=== PATIENT | male | born 1940 | race Caucasian/White ===

== ENCOUNTER 2018-11-21 18:50 | Outpatient (CLI) | payer MEDICARE, BC | END 2018-11-21 18:51 | disposition critical access hospital (66) | LOC: MERGE 18:50 → EMS 18:50 | PROVIDERS: ATTEND Surgery | DX: R55 Syncope and collapse (principal); R11.0 Nausea | CPT/HCPCS: A0425; A0427 ==

== ENCOUNTER 2018-11-21 18:56 | Emergency (ER) | payer MEDICARE, BC ==
[2018-11-21 19:30] LABS: BASOPHILS % (AUTO) 0.1 %; EOSINOPHILS # (AUTO) 0.1 10^3/uL (0.0-0.7); EOSINOPHILS % (AUTO) 0.5 %; HGB - HEMOGLOBIN 13.9 g/dL (14.0-18.0); LYMPHOCYTES # (AUTO) 1.1 10^3/uL (1.5-3.5); LYMPHOCYTES % (AUTO) 10.6 %; MEAN CORPUSCULAR HEMOGLOBIN 31.1 pg (27.0-31.0); MEAN CORPUSCULAR HGB CONC 34.1 g/dL (32.0-36.0); MEAN PLATELET VOLUME 6.8 fL (7.4-11.4); MONOCYTES # (AUTO) 1.1 10^3/uL (0.0-1.0); MONOCYTES % (AUTO) 9.9 %; NEUTROPHILS # (AUTO) 8.5 10^3/uL (1.5-6.6); NEUTROPHILS % (AUTO) 78.9 %; PLT - PLATELET COUNT 187 10^3/uL (130-450); RED BLOOD COUNT 4.48 10^6/uL (4.70-6.10); RED CELL DISTRIBUTION WIDTH 14.1 % (12.0-15.0); WHITE BLOOD COUNT 10.8 x10^3/uL (4.8-10.8)
[2018-11-21 19:45] LABS: ALBUMIN 3.1 g/dL (3.2-5.5); ALBUMIN/GLOBULIN RATIO 1.1 (1.0-2.2); BILIRUBIN,TOTAL 0.6 mg/dL (0.2-1.0); CALCIUM 8.2 mg/dL (8.5-10.3); CREATININE 0.8 mg/dL (0.6-1.2); TOTAL PROTEIN 5.9 g/dL (6.7-8.2)
[2018-11-21] MEDS ORDERED: SODIUM CHLORIDE 0.9% 1,000 ML IV ONE ×2 (20:21→21:48)
--- NOTE | 2018-11-21 20:26 | ED Physician Documentation ---
PD HPI SYNCOPE - Stated complaint Stated Complaint: SYNCOPAL - Chief complaint Chief Complaint: Neuro - History obtained from History obtained from: Patient, Family - History of Present Illness Witnessed: Witnessed Timing - onset: Today Duration: Minutes Preceding symptoms: Diaphoresis, Nausea / vomiting, Light headed Associated symptoms: Nausea / vomiting Contributing factors: Just stood up, Other (recovering from pneumonia) Injury occurred: None Similar symptoms before: Has not had sx before Recently seen: Emergency Dept - Additional information Additional information: 78-year-old male who is had a cough for the past week has been diagnosed with pneumonia 2 days ago when he developed shaking chills [facility]. He has been placed on Levaquin he was given 2 L of fluid. He reports that they spent the night in a hotel after getting out of the emergency room at midnight and th en yesterday he spent most of the day in bed today he was resting and when he was sitting on the couch he had half a beer he felt dizzy lightheaded nauseous and diaphoretic. He went to stand up from the couch and had a syncopal episode his found him laying across the couch and he was initially unresponsive. Review of Systems Constitutional: reports: Fever, Chills, Fatigue, Sweats Eyes: denies: Decreased vision Ears: denies: Ear pain Nose: denies: Rhinorrhea / runny nose, Congestion Throat: denies: Sore throat Cardiac: denies: Chest pain / pressure, Palpitations Respiratory: reports: Cough. denies: Dyspnea GI: reports: Nausea, Vomiting. denies: Abdominal Pain : denies: Dysuria, Frequency Skin: denies: Rash Musculoskeletal: denies: Neck pain, Back pain, Extremity pain Neurologic: denies: Generalized weakness, Focal weakness, Numbness PD PAST MEDICAL HISTORY - Past Medical History Past Medical History: Yes Cardiovascular: Hypertension Other Past Medical History: prostate CA - Present Medications Home Medications: Ambulatory Orders Medication Instructions Recorded Confirmed RX: Atenolol 0 mg PO DAILY 11/21/18 11/21/18 RX: Lisinopril 0 mg PO DAILY 11/21/18 11/21/18 amLODIPine [Norvasc] 5 mg PO DAILY 11/21/18 11/21/18 levoFLOXacin [Levaquin] 0 mg PO QD 11/21/18 11/21/18 - Allergies Allergies/Adverse Reactions: Allergies Allergy/AdvReac Type Severity Reaction Status Date / Time No Known Drug Allergies Allergy Verified 11/21/18 19:09 - Social History Does the pt smoke?: No Smoking Status: Never smoker PD ED PE NORMAL - Vitals Vital signs reviewed: Yes (hypertenisve ) - General General: Alert and oriented X 3, No acute distress, Well developed/nourished, Other (Yesterday looking 78-year-old male with a weather beaten face is in no distress) - HEENT HEENT: Atraumatic, PERRL, EOMI - Neck Neck: Supple, no meningeal sign, No bony TTP - Cardiac Cardiac: RRR, No murmur - Respiratory Respiratory: No respiratory distress, Other (Rhonchi in the left base) - Abdomen Abdomen: Soft, Non tender - Back Back: No CVA TTP, No spinal TTP - Derm Derm: Normal color, Warm and dry, No rash - Extremities Extremities: No deformity, No edema - Neuro Neuro: Alert and oriented X 3, 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, No motor deficit, No sensory deficit, Normal speech Eye Opening: Spontaneous Motor: Obeys Commands Verbal: Oriented GCS Score: 15 - Psych Psych: Normal mood, Normal affect Results - Vitals Vitals: Vital Signs - 24 hr 11/21/18 11/21/18 11/21/18 19:02 21:32 21:36 Temperature 36.5 C Heart Rate 69 69 68 Respiratory 19 13 24 Rate Blood Pressure 184/63 H 169/52 H 192/75 H O2 Saturation 96 95 95 11/21/18 22:26 Temperature 37.2 C Heart Rate 68 Respiratory 24 Rate Blood Pressure 183/65 H O2 Saturation 98 Oxygen O2 Source Room air - EKG (time done) 1909 Rate: Rate (enter#) (70) Rhythm: NSR, LAE Intervals: RBBB Compare to prior EKG: Old EKG unavailable Computer interpretation: Agree with computer - Labs Labs: Laboratory Tests 11/21/18 11/21/18 11/21/18 19:25 19:25 20:35 WBC 10.8 RBC 4.48 L Hgb 13.9 L Hct 40.7 L MCV 91.0 MCH 31.1 H MCHC 34.1 RDW 14.1 Plt Count 187 MPV 6.8 L Neut # (Auto) 8.5 H Lymph # (Auto) 1.1 L [place] # (Auto) 1.1 H Eos # (Auto) 0.1 Baso # (Auto) 0.0 Absolute Nucleated RBC 0.01 Nucleated RBC % 0.1 Sodium 134 L Potassium 3.8 Chloride 101 Carbon Dioxide 24 Anion Gap 9.0 BUN 16 Creatinine 0.8 Estimated GFR (MDRD) 93 Glucose 129 H Lactic Acid Calcium 8.2 L Total Bilirubin 0.6 AST 35 ALT 31 Alkaline Phosphatase 51 Troponin I < 0.04 Total Protein 5.9 L Albumin 3.1 L Globulin 2.8 Albumin/Globulin Ratio 1.1 Lipase 22 Urine Color Urine Clarity Urine pH Ur Specific [place] Urine Protein Urine Glucose (UA) Urine Ketones Urine Occult Blood Urine Nitrite Urine Bilirubin Urine Urobilinogen Ur Leukocyte Esterase Ur Microscopic Review Urine Culture Comments 11/21/18 11/21/18 20:35 21:55 WBC RBC Hgb Hct MCV MCH MCHC RDW Plt Count MPV Neut # (Auto) Lymph # (Auto) [place] # (Auto) Eos # (Auto) Baso # (Auto) Absolute Nucleated RBC Nucleated RBC % Sodium Potassium Chloride Carbon Dioxide Anion Gap BUN Creatinine Estimated GFR (MDRD) Glucose Lactic Acid 1.1 Calcium Total Bilirubin AST ALT Alkaline Phosphatase Troponin I Total Protein Albumin Globulin Albumin/Globulin Ratio Lipase Urine Color YELLOW Urine Clarity CLEAR Urine pH 6.0 Ur Specific [place] 1.015 Urine Protein NEGATIVE Urine Glucose (UA) NEGATIVE Urine Ketones TRACE Urine Occult Blood NEGATIVE Urine Nitrite NEGATIVE Urine Bilirubin NEGATIVE Urine Urobilinogen 0.2 (NORMAL) Ur Leukocyte Esterase NEGATIVE Ur Microscopic Review NOT INDICATED Urine Culture Comments NOT INDICATED - Rads (name of study) chest 1 view Radiology: Prelim report reviewed (Impression: 1. Lungs are well expanded. Normal heart size. There is thoracic aortic calcification. 2 There is increased opacity within the left lung base. This is suspicious for infiltrate. 3 Small pleural effusions may be present. 4 There is no pneumothorax.), EMP read indepedently, See rad report Procedures - IVC sono (time) 2019 Bedside IVC sono: IVC measures (cm) (1.22), IVC collapsed c insp (cm) (complete), Dehydration (est 1 liter deficit) PD MEDICAL DECISION MAKING - ED course Complexity details: reviewed old records, reviewed results, re-evaluated patient, considered differential, d/w patient, d/w family ED course: 78-year-old male with pneumonia has had a syncopal episode this evening after drinking a beer and standing up. He is found to be dehydrated on interrogation the inferior vena cava and he is administered a liter of saline. He feels markedly improved at the time of discharge. Departure - Departure Disposition: 01 Home, Self Care Clinical Impression: Syncope, Dehydration, Pneumonia Condition: Stable Instructions: ED Dehydration, ED Pneumonia Adult, ED Syncope Vasovagal Follow-Up: Caridad Mcgee MD [Primary Care Provider] - Discharge Date/Time: 11/21/18 22:33
--- NOTE | 2018-11-21 20:53 | XRAY Report ---
Reason: chest pain Procedure Date: 11/21/2018 Accession Number: [id number] / [id number] Procedure: XR - Chest 1 View X-Ray CPT Code: 35336 FULL RESULT: EXAM: CHEST RADIOGRAPHY EXAM DATE: 11/21/2018 08:34 PM. CLINICAL HISTORY: Chest pain. COMPARISON: None. TECHNIQUE: 1 view. FINDINGS: Lungs/Pleura: There is increased opacity within the medial lung base. Small pleural effusions may be present. There is no evidence of pneumothorax. Mediastinum: Heart size is within normal limits. Other: None. IMPRESSION: 1. Lungs are well expanded. Normal heart size. There is thoracic aortic calcification. 2. There is increased opacity within the left lung base. This is suspicious for infiltrate. 3. Small pleural effusions may be present. 4. There is no pneumothorax. RADIA
[2018-11-21 22:02] LABS: BILIRUBIN,URINE NEGATIVE (NEGATIVE); GLUCOSE, URINE (UA) NEGATIVE (NEGATIVE); KETONES,URINE (UA) TRACE mg/dL (NEGATIVE); LEUKOCYTE ESTERASE, URINE NEGATIVE (NEGATIVE); NITRITE,URINE NEGATIVE (NEGATIVE); OCCULT BLOOD,URINE NEGATIVE (NEGATIVE); PROTEIN,URINE NEGATIVE (NEGATIVE); UROBILINOGEN,URINE 0.2 (NORMAL) E.U./dL (NORMAL)
[2018-11-21 22:03] LABS: CLARITY,URINE CLEAR (CLEAR)
[2018-11-21 22:27] VITALS: BP 183/65
== END 2018-11-21 22:33 | disposition home or self-care (01) ==
LOC: ED 18:56 → MERGE 18:56 → ED 22:33
DX: R55 Syncope and collapse (principal); E86.0 Dehydration; J18.9 Pneumonia, unspecified organism; I45.2 Bifascicular block; I10 Essential (primary) hypertension; Z85.46 Personal history of malignant neoplasm of prostate
CPT/HCPCS: 36415; 71045; 80053; 81001; 81003; 83605; 83690; 84484; 85025; 87086; 93005; 96360; 99284

== ENCOUNTER 2018-12-28 15:29 | Outpatient (CLI) | payer MEDICARE, BC ==
--- NOTE | 2018-12-28 16:18 | XRAY Report ---
Reason: FOLLOWUP ABNORMAL CXR Procedure Date: 12/28/2018 Accession Number: [id number] / [id number] Procedure: XR - Chest 2 View X-Ray CPT Code: 53366 FULL RESULT: EXAM: CHEST RADIOGRAPHY EXAM DATE: 12/28/2018 03:56 PM. CLINICAL HISTORY: Followup abnormal chest x-ray. COMPARISON: CHEST 1 VIEW 11/21/2018 8:20 PM. TECHNIQUE: 2 views. FINDINGS: Lungs/Pleura: There is persistent mild airway thickening with interval resolution of the density at the left lung base. No focal opacities evident. No pleural effusion. No pneumothorax. Normal volumes. Mediastinum: Stable cardiomediastinal silhouette with borderline mild cardiomegaly and calcified aortic arch. Other: None. IMPRESSION: Interval resolution of left basilar densities with no evidence of acute consolidative airspace disease. RADIA
== END 2018-12-28 15:30 | disposition home or self-care (01) ==
LOC: DI 15:29
PROVIDERS: ATTEND Internal Medicine
DX: J18.9 Pneumonia, unspecified organism (principal)
CPT/HCPCS: 71046

== ENCOUNTER 2019-04-07 09:30 | Day surgery (SDC) | payer MEDICARE, BC ==
[2019-04-07] MEDS ORDERED: MIDAZOLAM 2 MG/2 ML VIAL IVP ONE (09:31)
[2019-04-07] MEDS ORDERED: fentaNYL 100 MCG/2 ML VIAL IVP ONE (09:31)
[2019-04-07] MEDS ORDERED: LACTATED RINGERS 1,000 ML IV ONE ×2 (09:47→12:06)
[2019-04-07 12:54] VITALS: BP 113/67
== END 2019-04-07 09:31 | disposition home or self-care (01) ==
LOC: SDS 09:30
PROVIDERS: ATTEND Surgery
PROC: 0DJD8ZZ Inspection of Lower Intestinal Tract, Via Natural or Artificial Opening Endoscopic (ICD-10-PCS; principal; 2019-04-07 11:00)
DX: Z12.11 Encounter for screening for malignant neoplasm of colon (principal); K57.30 Diverticulosis of large intestine without perforation or abscess without bleeding; K64.8 Other hemorrhoids; I10 Essential (primary) hypertension; R73.9 Hyperglycemia, unspecified; Z86.010 Personal history of colon polyps
CPT/HCPCS: G0105; J7120

== ENCOUNTER 2020-06-06 12:04 | Outpatient (CLI) | payer MEDICARE, BC ==
--- NOTE | 2020-06-06 12:44 | CT Report ---
PROCEDURE: HEAD WO INDICATIONS: MEMORY DEFICIT TECHNIQUE: Noncontrast 4.5 mm thick angled axial sections acquired from the foramen magnum to the vertex. For r adiation dose reduction, the following was used: automated exposure control, adjustment of mA and/or kV according to patient size. COMPARISON: None. FINDINGS: Image quality: Excellent. CSF spaces: Basal cisterns are patent. No extra-axial fluid collections. Ventricles are normal in size and shape. Brain: No midline shift. No intracranial masses or hemorrhage. Arguello-white matter interface is norm al. There is an ovoid area of low attenuation immediately above the middle third of the right latera l ventricle, with an appearance most likely reflecting a long-standing old small lacunar infarction m easuring 1.3 cm in maximal dimension at the right cerebrum. Skull and face: Calvarium and visualized facial bones are intact, without suspicious lesions. Sinuses: Visualized sinuses and mastoids are clear. IMPRESSION: Normal for age, source of memory deficit is not identified. Mild microvascular atheroscl erotic change is present in the deep white matter of each hemisphere, and what appears to be a focal area of old lacunar infarction can be seen immediately above the middle third of the right lateral ve ntricle, chronic in appearance. Reviewed by: Yanick Zee MD on 06/06/2020 12:43 PM PST Approved by: Yanick Zee MD on 06/06/2020 12:43 PM PST Station ID: [id number]
--- NOTE | 2020-06-06 16:48 | Ultrasound Report ---
PROCEDURE: Carotid Doppler Complete INDICATIONS: LEFT CAROTID BUIT TECHNIQUE: Color and pulse Doppler interrogation was performed of both carotid systems, with image documentation and velocity measurements. COMPARISON: None. FINDINGS: Right side: Common carotid artery peak systolic velocity: 72 cm/sec. Internal carotid artery peak systolic velocity: 105 cm/sec. Internal carotid artery end diastolic velocity: 9 cm/sec. External carotid artery peak systolic velocity: Greater than 320 cm/sec. ICA/CCA peak systolic ratio: 1.5 . Arguello scale imaging description: Moderate plaque at the bifurcation. Percent internal carotid artery stenosis: 50-69% stenosis . Vertebral artery: Flow direction is antegrade. Left side: Common carotid artery peak systolic velocity: 69 cm/sec. Internal carotid artery peak systolic velocity: Greater than 304 cm/sec. Internal carotid artery end diastolic velocity: 64 cm/sec. External carotid artery peak systolic velocity: 242 cm/sec. ICA/CCA peak systolic ratio: 4.4. Arguello scale imaging description: Moderate to severe plaque at the bifurcation Percent internal carotid artery stenosis: Greater than 70% 2 occlusion . Vertebral artery: Flow direction is antegrade. IMPRESSION: 1. High-grade stenosis of the left internal carotid artery, greater than 70% to occlusion. 2. Markedly elevated external carotid artery systolic peak velocity on the right. However, based on i nternal carotid artery systolic peak velocity, less than 50% stenosis is noted. The estimate of stenosis included in the report of the imaging study was calculated using the NASCET method Reviewed by: Nina Mcfadden MD on 06/06/2020 4:47 PM PST Approved by: Nina Mcfadden MD on 06/06/2020 4:47 PM PST Station ID: [id number]
== END 2020-06-06 12:05 | disposition home or self-care (01) ==
LOC: DI 12:04
PROVIDERS: ATTEND Family Medicine
DX: I65.22 Occlusion and stenosis of left carotid artery (principal); R41.3 Other amnesia
CPT/HCPCS: 70450; 93880

== ENCOUNTER 2020-06-20 07:09 | Outpatient (CLI) | payer MEDICARE, BC ==
[2020-06-20 07:45] LABS: BASOPHILS % (AUTO) 0.5 %; EOSINOPHILS # (AUTO) 0.1 10^3/uL (0.0-0.7); EOSINOPHILS % (AUTO) 0.9 %; HGB - HEMOGLOBIN 15.1 g/dL (14.0-18.0); LYMPHOCYTES # (AUTO) 1.7 10^3/uL (1.5-3.5); LYMPHOCYTES % (AUTO) 21.9 %; MEAN CORPUSCULAR HEMOGLOBIN 32.4 pg (27.0-31.0); MEAN CORPUSCULAR HGB CONC 34.7 g/dL (32.0-36.0); MEAN CORPUSCULAR VOLUME 93.3 fL (80.0-94.0); MEAN PLATELET VOLUME 8.8 fL (7.4-11.4); MONOCYTES % (AUTO) 12.5 %; NEUTROPHILS % (AUTO) 63.6 %; PLT - PLATELET COUNT 257 10^3/uL (130-450); RED BLOOD COUNT 4.66 10^6/uL (4.70-6.10); RED CELL DISTRIBUTION WIDTH 13.9 % (12.0-15.0); WHITE BLOOD COUNT 7.9 x10^3/uL (4.8-10.8)
[2020-06-20 08:01] LABS: ALBUMIN/GLOBULIN RATIO 1.7 (1.0-2.2); ALKALINE PHOSPHATASE 55 IU/L (42-121); ALT ALANINE AMINOTRANSFERASE 26 IU/L (10-60); AST ASPARTATE AMINOTRANSFERASE 21 IU/L (10-42); BILIRUBIN,TOTAL 0.8 mg/dL (0.2-1.0); BUN - BLOOD UREA NITROGEN 18 mg/dL (6-20); CALCIUM 9.4 mg/dL (8.5-10.3); CARBON DIOXIDE - CO2 28 mmol/L (21-32); CHLORIDE 95 mmol/L (101-111); CHOL/HDL RATIO 5.5 (<5.0); CHOLESTEROL 225 mg/dL; CREATININE 0.8 mg/dL (0.6-1.2); GLUCOSE 103 mg/dL (70-100); HDL CHOLESTEROL 41 mg/dL; LDL CHOLESTEROL,CALCULATED 162 mg/dL; SODIUM 138 mmol/L (135-145); TOTAL PROTEIN 6.4 g/dL (6.7-8.2); VLDL CHOLESTEROL 22 mg/dL
== END 2020-06-20 07:10 | disposition home or self-care (01) ==
LOC: LAB 07:09
PROVIDERS: ATTEND Family Medicine
DX: R41.3 Other amnesia (principal); R09.89 Other specified symptoms and signs involving the circulatory and respiratory systems; H91.90 Unspecified hearing loss, unspecified ear; R73.9 Hyperglycemia, unspecified; E78.5 Hyperlipidemia, unspecified; I10 Essential (primary) hypertension; C61 Malignant neoplasm of prostate
CPT/HCPCS: 36415; 80053; 80061; 83036; 83721; 84153; 84443; 85025

== ENCOUNTER 2020-12-12 08:00 | Outpatient (CLI) | payer MEDICARE, OTHER ==
[2020-12-12 13:19] LABS: BASOPHILS # (AUTO) 0.1 10^3/uL (0.0-0.1); BASOPHILS % (AUTO) 0.6 %; EOSINOPHILS # (AUTO) 0.1 10^3/uL (0.0-0.7); EOSINOPHILS % (AUTO) 0.9 %; HGB - HEMOGLOBIN 14.1 g/dL (14.0-18.0); LYMPHOCYTES # (AUTO) 1.6 10^3/uL (1.5-3.5); LYMPHOCYTES % (AUTO) 19.6 %; MEAN CORPUSCULAR HEMOGLOBIN 30.9 pg (27.0-31.0); MEAN CORPUSCULAR HGB CONC 32.8 g/dL (32.0-36.0); MEAN CORPUSCULAR VOLUME 94.3 fL (80.0-94.0); MEAN PLATELET VOLUME 9.1 fL (7.4-11.4); MONOCYTES # (AUTO) 0.9 10^3/uL (0.0-1.0); NEUTROPHILS # (AUTO) 5.4 10^3/uL (1.5-6.6); NEUTROPHILS % (AUTO) 67.3 %; PLT - PLATELET COUNT 256 10^3/uL (130-450); RED BLOOD COUNT 4.56 10^6/uL (4.70-6.10); RED CELL DISTRIBUTION WIDTH 14.4 % (12.0-15.0)
[2020-12-12 13:52] LABS: ALBUMIN 4.4 g/dL (3.2-5.5); ALBUMIN/GLOBULIN RATIO 1.8 (1.0-2.2); ALKALINE PHOSPHATASE 57 IU/L (42-121); ALT ALANINE AMINOTRANSFERASE 26 IU/L (10-60); AST ASPARTATE AMINOTRANSFERASE 24 IU/L (10-42); BILIRUBIN,TOTAL 0.7 mg/dL (0.2-1.0); BUN - BLOOD UREA NITROGEN 22 mg/dL (6-20); CALCIUM 9.5 mg/dL (8.5-10.3); CARBON DIOXIDE - CO2 29 mmol/L (21-32); CHLORIDE 98 mmol/L (101-111); CHOL/HDL RATIO 2.2 (<5.0); CHOLESTEROL 112 mg/dL; CREATININE 0.8 mg/dL (0.6-1.2); GFR - MDRD 93 (>89); GLUCOSE 97 mg/dL (70-100); HDL CHOLESTEROL 51 mg/dL; LDL CHOLESTEROL,CALCULATED 46 mg/dL; LDL/HDL RATIO 0.9 (<3.6); POTASSIUM 4.4 mmol/L (3.5-5.0); SODIUM 133 mmol/L (135-145); TOTAL PROTEIN 6.8 g/dL (6.7-8.2); TRIGLYCERIDES 77 mg/dL; VLDL CHOLESTEROL 15 mg/dL
[2020-12-12 14:05] LABS: THYROID STIMULATING HORMONE 3.03 uIU/mL (0.34-5.60)
[2020-12-12 17:00] LABS: ESTIMATED AVERAGE GLUCOSE 100 mg/dL (70-100); HEMOGLOBIN A1c% 5.1 % (4.27-6.07)
== END 2020-12-12 23:59 | disposition home or self-care (01) ==
LOC: LAB.WCP 08:00
PROVIDERS: ATTEND Family Medicine
DX: I65.22 Occlusion and stenosis of left carotid artery (principal); I10 Essential (primary) hypertension; R73.9 Hyperglycemia, unspecified; E78.5 Hyperlipidemia, unspecified
CPT/HCPCS: 36415; 80053; 80061; 83036; 83721; 84443; 85025

== ENCOUNTER 2021-03-30 18:10 | Outpatient (CLI) | payer MEDICARE, OTHER | END 2021-03-30 18:11 | disposition critical access hospital (66) | LOC: EMS 18:10 | DX: S00.03XA Contusion of scalp, initial encounter (principal); W18.30XA Fall on same level, unspecified, initial encounter; Y92.008 Other place in unspecified non-institutional (private) residence as the place of occurrence of the external cause; R11.2 Nausea with vomiting, unspecified; Z79.01 Long term (current) use of anticoagulants | CPT/HCPCS: A0425; A0429 ==

== ENCOUNTER 2021-03-30 18:17 | Emergency (ER) | payer MEDICARE, OTHER ==
[2021-03-30] MEDS ORDERED: ONDANSETRON 4 MG/2 ML VIAL IVP STA (18:19)
--- NOTE | 2021-03-30 19:06 | CT Report ---
PROCEDURE: HEAD WO INDICATIONS: polytrauma, head neck injury TECHNIQUE: Noncontrast 4.5 mm thick angled axial sections acquired from the foramen magnum to the vertex. For r adiation dose reduction, the following was used: automated exposure control, adjustment of mA and/or kV according to patient size. COMPARISON: 06/06/2020 FINDINGS: Image quality: Excellent. CSF spaces: Basal cisterns are patent. No extra-axial fluid collections. The ventricles are symmet yasmin in size and shape. Brain: No intracranial bleeds or masses. There is cerebral volume loss for age, with resultant vent ricular and sulcal prominence. There are periventricular and deep white matter chronic small vessel ischemic changes. There is intracranial internal carotid artery and vertebral artery atherosclerosis . Skull and face: Calvarium and visualized facial bones appear intact, without suspicious lesions. Lar ge left parietal scalp hematoma. Sinuses: Visualized sinuses and mastoids are clear. IMPRESSION: No acute intracranial disease process. Reviewed by: Catherine Moreno MD, PhD on 03/30/2021 7:04 PM PDT Approved by: Catherine Moreno MD, PhD on 03/30/2021 7:04 PM PDT Station ID: [id number]
[2021-03-30 19:07] LABS: BASOPHILS % (AUTO) 0.2 %; EOSINOPHILS # (AUTO) 0.1 10^3/uL (0.0-0.7); EOSINOPHILS % (AUTO) 0.8 %; HCT - HEMATOCRIT 39.3 % (42.0-52.0); HGB - HEMOGLOBIN 13.6 g/dL (14.0-18.0); MEAN CORPUSCULAR HEMOGLOBIN 32.5 pg (27.0-31.0); MEAN CORPUSCULAR HGB CONC 34.6 g/dL (32.0-36.0); MEAN CORPUSCULAR VOLUME 93.8 fL (80.0-94.0); MONOCYTES # (AUTO) 0.9 10^3/uL (0.0-1.0); MONOCYTES % (AUTO) 10.5 %; NEUTROPHILS # (AUTO) 6.3 10^3/uL (1.5-6.6); NEUTROPHILS % (AUTO) 75.7 %; PLT - PLATELET COUNT 198 10^3/uL (130-450); RED BLOOD COUNT 4.19 10^6/uL (4.70-6.10); RED CELL DISTRIBUTION WIDTH 14.2 % (12.0-15.0); WHITE BLOOD COUNT 8.3 x10^3/uL (4.8-10.8)
--- NOTE | 2021-03-30 19:10 | CT Report ---
PROCEDURE: CERVICAL SPINE WO INDICATIONS: polytrauma, critical head and neck injury suspecte TECHNIQUE: Noncontrast 3 mm thick sections acquired from the skull base to the T4 level. Sagittal and coronal r eformats were then constructed. For radiation dose reduction, the following was used: automated exp osure control, adjustment of mA and/or kV according to patient size. COMPARISON: None. FINDINGS: Image quality: Excellent. Bones: No fractures or dislocations. Visualized superior ribs are intact. Spine degenerative disc disease and facet arthropathy are noted. Soft tissues: Prevertebral soft tissues are normal in thickness. No paravertebral hematomas. No ap ical pneumothoraces. IMPRESSION: No fracture. No acute osseous lesion. If there is continued clinical concern for pathology, then MRI should be considered for further evaluation. Reviewed by: Catherine Moreno MD, PhD on 03/30/2021 7:09 PM PDT Approved by: Catherine Morneo MD, PhD on 03/30/2021 7:09 PM PDT Station ID: [id number]
--- NOTE | 2021-03-30 19:11 | ED Physician Documentation ---
PD HPI Fall - Stated complaint Stated Complaint: GLF/ HEAD INJ - Chief complaint Chief Complaint: Trauma Hd/Nk PD PAST MEDICAL HISTORY - Past Medical History Cardiovascular: Hypertension Respiratory: None Endocrine/Autoimmune: None GI: Colon polyps : None HEENT: Chronic hearing loss Psych: None Musculoskeletal: None Derm: None - Past Surgical History General: Colonoscopy HEENT: Tonsil/Adenoidectomy - Present Medications Home Medications: Ambulatory Orders Medication Instructions Recorded Confirmed atenoloL [Atenolol] 50 mg PO DAILY 11/21/18 03/30/21 Amlodipine Besylate [Norvasc] 10 mg PO BID 03/30/21 03/30/21 Losartan [Cozaar] 50 mg PO BID 03/30/21 03/30/21 Rosuvastatin Calcium [Crestor] 40 mg PO DAILY 03/30/21 03/30/21 Ticagrelor [Brilinta] 03/30/21 Ticagrelor [Brilinta] 90 mg PO BID 03/30/21 03/30/21 - Allergies Allergies/Adverse Reactions: Allergies Allergy/AdvReac Type Severity Reaction Status Date / Time No Known Drug Allergies Allergy Verified 03/30/21 18:32 - Social History Does the pt smoke?: No Smoking Status: Never smoker Results - Vitals Vitals: Vital Signs - 24 hr 03/30/21 03/30/21 18:20 18:30 Temperature 36.5 C Heart Rate 62 64 Respiratory 15 18 Rate Blood Pressure 192/57 H 166/61 H O2 Saturation 100 100 Oxygen O2 Source Room air - Labs Labs: Laboratory Tests 03/30/21 18:50 WBC 8.3 RBC 4.19 L Hgb 13.6 L Hct 39.3 L MCV 93.8 MCH 32.5 H MCHC 34.6 RDW 14.2 Plt Count 198 MPV 9.0 Neut # (Auto) 6.3 Lymph # (Auto) 1.0 L [place] # (Auto) 0.9 Eos # (Auto) 0.1 Baso # (Auto) 0.0 Absolute Nucleated RBC 0.00 Nucleated RBC % 0.0
[2021-03-30 19:14] LABS: INR 1.1 (0.8-1.2); PT - PROTHROMBIN TIME 12.3 secs (9.9-12.6)
[2021-03-30 19:21] LABS: ALBUMIN 4.4 g/dL (3.2-5.5); ALBUMIN/GLOBULIN RATIO 1.8 (1.0-2.2); BILIRUBIN,TOTAL 0.9 mg/dL (0.2-1.0); CALCIUM 9.3 mg/dL (8.5-10.3); CREATININE 0.8 mg/dL (0.6-1.2); POTASSIUM 4.1 mmol/L (3.5-5.0); TOTAL PROTEIN 6.9 g/dL (6.7-8.2)
--- NOTE | 2021-03-30 19:26 | ED Physician Documentation ---
PD HPI SYNCOPE - Stated complaint Stated Complaint: GLF/ HEAD INJ - Chief complaint Chief Complaint: Trauma Hd/Nk - History obtained from History obtained from: Patient - History of Present Illness Witnessed: Unwitnessed Timing - onset: How many minutes ago (approximately 30 minutes [employer]) Duration: Seconds Preceding symptoms: None Associated symptoms: No: Incontinant of urine, Incontinant of stool, Headache, Vision changes, Chest pain Contributing factors: None Injury occurred: Fell, Head injury Pain level now: 2 Similar symptoms before: Has not had sx before Recently seen: Not recently seen - Additional information Additional information: c/o syncopal episode while standing at home in his garage. he does not recall any prodrome, woke up on concrete floor and was aware he hit the back of his head as it was swollen and painful (but no generalized headache). He had nausea which has resolved after zofran was given. He takes brilinta. On my HPI, he says he feels well and only has mild discomfort back of head where he hit it on the concrete floor. Review of Systems Constitutional: reports: Reviewed and negative Eyes: reports: Reviewed and negative Cardiac: reports: Reviewed and negative Respiratory: reports: Reviewed and negative GI: reports: Nausea. denies: Abdominal Pain, Vomiting : denies: Incontinent Skin: denies: Laceration (s) Musculoskeletal: reports: Reviewed and negative Neurologic: reports: Syncope, Head injury. denies: Generalized weakness, Focal weakness, Numbness, Confused, Altered mental status, Headache PD PAST MEDICAL HISTORY - Past Medical History Cardiovascular: Hypertension Respiratory: None Endocrine/Autoimmune: None GI: Colon polyps : None HEENT: Chronic hearing loss Psych: None Musculoskeletal: None Derm: None - Past Surgical History General: Colonoscopy HEENT: Tonsil/Adenoidectomy - Present Medications Home Medications: Ambulatory Orders Medication Instructions Recorded Confirmed atenoloL [Atenolol] 50 mg PO DAILY 11/21/18 03/30/21 Amlodipine Besylate [Norvasc] 10 mg PO BID 03/30/21 03/30/21 Losartan [Cozaar] 50 mg PO BID 03/30/21 03/30/21 Rosuvastatin Calcium [Crestor] 40 mg PO DAILY 03/30/21 03/30/21 Ticagrelor [Brilinta] 03/30/21 Ticagrelor [Brilinta] 90 mg PO BID 03/30/21 03/30/21 - Allergies Allergies/Adverse Reactions: Allergies Allergy/AdvReac Type Severity Reaction Status Date / Time No Known Drug Allergies Allergy Verified 03/30/21 18:32 - Social History Does the pt smoke?: No Smoking Status: Never smoker PD ED PE NORMAL - Vitals Vital signs reviewed: Yes - General General: Alert and oriented X 3, No acute distress, Well developed/nourished - HEENT HEENT: PERRL, EOMI, Moist mucous membranes - Neck Neck: No bony TTP - Cardiac Cardiac: RRR, No murmur - Respiratory Respiratory: No respiratory distress, Clear bilaterally - Abdomen Abdomen: Soft, Non tender - Back Back: No spinal TTP - Derm Derm: Normal color, Warm and dry - Extremities Extremities: No tenderness to palpate, Normal ROM s pain, No edema - Neuro Neuro: Alert and oriented X 3, 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, No motor deficit, No sensory deficit, Normal speech Eye Opening: Spontaneous Motor: Obeys Commands Verbal: Oriented GCS Score: 15 - Psych Psych: Normal mood, Normal affect PD ED PE EXPANDED - HEENT HEENT Visual: 1 - swelling (hematoma, mild tenderness without bony step-off) Results - Vitals Vitals: Vital Signs - 24 hr 03/30/21 03/30/21 03/30/21 18:20 18:30 19:37 Temperature 36.5 C Heart Rate 62 64 59 L Respiratory 15 18 12 Rate Blood Pressure 192/57 H 166/61 H 186/64 H O2 Saturation 100 100 100 03/30/21 03/30/21 20:11 21:06 Temperature 36.5 C Heart Rate 61 61 Respiratory 13 13 Rate Blood Pressure 176/61 H 176/61 H O2 Saturation 97 97 Oxygen O2 Source Room air - EKG (time done) No standard instances Rate: Rate (enter#) (69) Rhythm: NSR, LAE [place]: LAD, Anterior hemiblock Intervals: RBBB QRS: Normal Ischemia: Normal ST segments Compare to prior EKG: Unchanged from prior EKG (11/21/18) - Labs Labs: Laboratory Tests 03/30/21 03/30/21 03/30/21 18:50 18:50 18:50 WBC 8.3 RBC 4.19 L Hgb 13.6 L Hct 39.3 L MCV 93.8 MCH 32.5 H MCHC 34.6 RDW 14.2 Plt Count 198 MPV 9.0 Neut # (Auto) 6.3 Lymph # (Auto) 1.0 L [place] # (Auto) 0.9 Eos # (Auto) 0.1 Baso # (Auto) 0.0 Absolute Nucleated RBC 0.00 Nucleated RBC % 0.0 PT 12.3 INR 1.1 Sodium 135 Potassium 4.1 Chloride 100 L Carbon Dioxide 26 Anion Gap 9.0 BUN 24 H Creatinine 0.8 Estimated GFR (MDRD) 92 Glucose 117 H Calcium 9.3 Total Bilirubin 0.9 AST 23 ALT 31 Alkaline Phosphatase 61 Troponin I High Sens Total Protein 6.9 Albumin 4.4 Globulin 2.5 Albumin/Globulin Ratio 1.8 Lipase 24 03/30/21 18:50 WBC RBC Hgb Hct MCV MCH MCHC RDW Plt Count MPV Neut # (Auto) Lymph # (Auto) [place] # (Auto) Eos # (Auto) Baso # (Auto) Absolute Nucleated RBC Nucleated RBC % PT INR Sodium Potassium Chloride Carbon Dioxide Anion Gap BUN Creatinine Estimated GFR (MDRD) Glucose Calcium Total Bilirubin AST ALT Alkaline Phosphatase Troponin I High Sens 6.2 Total Protein Albumin Globulin Albumin/Globulin Ratio Lipase - Rads (name of study) CT head Radiology: Prelim report reviewed, See rad report CT cervcial spine Radiology: Prelim report reviewed, See rad report PD MEDICAL DECISION MAKING - ED course Complexity details: reviewed results, re-evaluated patient, considered differential, d/w patient ED course: presents after syncopal episode at home with head injury and on eliquis. No concerning findings on CTH nor CT cervical spine. Blood tests are also reassuring including troponin. No changes on EKG compared to previous (11/21/2018). He feels well on reevaluation and is comfortable with d/c home. Results reviewed with patient. Departure - Departure Disposition: 01 Home, Self Care Clinical Impression: Syncope Qualifiers: Syncope type: unspecified Qualified Code(s): R55 - Syncope and collapse Scalp hematoma Qualifiers: Encounter type: initial encounter Qualified Code(s): S00.03XA - Contusion of scalp, initial encounter Condition: Good Instructions: ED Hematoma, ED Fainting Unkn Cause Follow-Up: Steve Wayne MD [Primary Care Provider] - Discharge Date/Time: 03/30/21 21:08
[2021-03-30 20:12] VITALS: BP 176/61
== END 2021-03-30 21:08 | disposition home or self-care (01) ==
LOC: EDUNIT# → ED 18:17
DX: S00.03XA Contusion of scalp, initial encounter (principal); W18.30XA Fall on same level, unspecified, initial encounter; Y92.008 Other place in unspecified non-institutional (private) residence as the place of occurrence of the external cause; I10 Essential (primary) hypertension; Z79.01 Long term (current) use of anticoagulants
CPT/HCPCS: 36415; 80053; 83690; 84484; 85025; 85610; 93005; 96374; 99284

== ENCOUNTER 2021-04-01 09:11 | Emergency (ER) | payer MEDICARE, OTHER ==
--- NOTE | 2021-04-01 09:50 | ED Physician Documentation ---
PD HPI HEAD INJURY - Stated complaint Stated Complaint: DIZZINESS - Chief complaint Chief Complaint: Neuro - History obtained from History obtained from: Patient - History of Present Illness Mechanism of head injury: Fell (states does not remember the fall, but struck head few days ago and believes he "passed out" leading to fall. Has had increased feeling of positional vertigo with head movement and continued posterior head ache. No feeling of lightheaded nor near syncope since the fall. concerned about the vertigo.) Where head injury occurred: Home Timing - onset: How many days ago (3) Location of injury: Back Associated symptoms: Nausea / vomiting (with postional vertigo.). No: LOC, AMS Symptoms worsen with: Movement Contributing factors: No: Anticoagulated Recently seen: Emergency Dept (2 days ago post fall, with some labs, and also CT head/neck.) Review of Systems Constitutional: denies: Fever, Chills Eyes: denies: Loss of vision, Decreased vision Nose: denies: Rhinorrhea / runny nose, Congestion Throat: denies: Sore throat Respiratory: denies: Cough Neurologic: reports: Confused (mildly sluggish though process, per patient.). denies: Focal weakness, Numbness PD PAST MEDICAL HISTORY - Past Medical History Cardiovascular: Hypertension Respiratory: None Endocrine/Autoimmune: None GI: Colon polyps : None HEENT: Chronic hearing loss Psych: None Musculoskeletal: None Derm: None - Past Surgical History General: Colonoscopy HEENT: Tonsil/Adenoidectomy - Present Medications Home Medications: Ambulatory Orders Medication Instructions Recorded Confirmed atenoloL [Atenolol] 50 mg PO DAILY 11/21/18 03/30/21 Amlodipine Besylate [Norvasc] 10 mg PO BID 03/30/21 03/30/21 Losartan [Cozaar] 50 mg PO BID 03/30/21 03/30/21 Rosuvastatin Calcium [Crestor] 40 mg PO DAILY 03/30/21 03/30/21 Ticagrelor [Brilinta] 03/30/21 Ticagrelor [Brilinta] 90 mg PO BID 03/30/21 03/30/21 Meclizine [Antivert] 25 mg PO Q8H PRN #30 tablet 04/01/21 dexAMETHasone [Decadron] 4 mg PO DAILY #5 tablet 04/01/21 - Allergies Allergies/Adverse Reactions: Allergies Allergy/AdvReac Type Severity Reaction Status Date / Time No Known Drug Allergies Allergy Verified 04/01/21 09:21 - Social History Does the pt smoke?: No Smoking Status: Never smoker PD ED PE NORMAL - Vitals Vital signs reviewed: Yes - General General: Alert and oriented X 3, No acute distress, Well developed/nourished - HEENT HEENT: PERRL, EOMI (nystagmus to the right mildly. ), Moist mucous membranes, Pharynx benign, Other (swelling and tender occiput. No lacerations. 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, No motor deficit, No sensory deficit, Normal speech Eye Opening: Spontaneous Motor: Obeys Commands Verbal: Oriented GCS Score: 15 Results - Vitals Vitals: Vital Signs - 24 hr 04/01/21 04/01/21 04/01/21 09:21 11:23 12:33 Temperature 37.0 C Heart Rate 58 L 51 L 52 L Respiratory 19 17 18 Rate Blood Pressure 171/67 H 163/54 H 163/62 H O2 Saturation 100 100 99 Oxygen O2 Source Room air - Labs Labs: Laboratory Tests 04/01/21 04/01/21 04/01/21 10:24 10:24 10:24 WBC 9.4 RBC 3.89 L Hgb 12.5 L Hct 36.8 L MCV 94.6 H MCH 32.1 H MCHC 34.0 RDW 14.3 Plt Count 196 MPV 8.8 Neut # (Auto) 7.4 H Lymph # (Auto) 1.0 L [place] # (Auto) 0.9 Eos # (Auto) 0.0 Baso # (Auto) 0.0 Absolute Nucleated RBC 0.00 Nucleated RBC % 0.0 Sodium 132 L Potassium 4.9 Chloride 96 L Carbon Dioxide 26 Anion Gap 10.0 BUN 19 Creatinine 0.8 Estimated GFR (MDRD) 92 Glucose 102 H Calcium 9.2 Total Bilirubin 0.7 AST 19 ALT 24 Alkaline Phosphatase 55 Troponin I High Sens 6.4 Total Protein 6.2 L Albumin 3.9 Globulin 2.3 Albumin/Globulin Ratio 1.7 Lipase 22 - Rads (name of study) head CT Radiology: Prelim report reviewed (no acute process.), See rad report PD MEDICAL DECISION MAKING - ED course Complexity details: reviewed old records, re-evaluated patient (given Meclizine and having less vertigo. Does not seem otolithic in character though consider it s/p fall. Did not try Epleys. Will go with Meclizine and steroid, presuming more labrythine concussive effect. ), considered differential (was seen recent s/p fall with head/neck CT. Has had increased feeling of lightheaded and vertigo, so recheck CT to ensure not delayed subdural. Also to check labs. ), d/w patient Departure - Departure Disposition: 01 Home, Self Care Clinical Impression: Vertigo Head contusion Qualifiers: Encounter type: subsequent encounter Contusion of head detail: scalp Qualified Code(s): S00.03XD - Contusion of scalp, subsequent encounter Condition: Stable Record reviewed to determine appropriate education?: Yes Instructions: ED Vertigo Unspecified Follow-Up: Steve Wayne MD [Primary Care Provider] - Prescriptions: Meclizine [Antivert] 25 mg PO Q8H PRN #30 tablet PRN Reason: Vertigo dexAMETHasone [Decadron] 4 mg PO DAILY #5 tablet Comments: Your CT scan of the head is still looking normal. No signs of delayed bleeding or swelling. Your blood tests are good as well. I presume your vertigo is related to some injury either concussive of the head or more likely concussive of the inner ear. We can try anti-inflammatories for several days. Also meclizine every 8 hours if needed for vertigo. Recheck if not improving well over the next several days or so. Discharge Date/Time: 04/01/21 12:39
[2021-04-01] MEDS ORDERED: MECLIZINE 12.5 MG TABLET PO STA (10:13)
[2021-04-01] MEDS ORDERED: ACETAMINOPHEN 325 MG TABLET PO STA (10:14)
[2021-04-01 10:29] LABS: BASOPHILS % (AUTO) 0.3 %; EOSINOPHILS % (AUTO) 0.3 %; HCT - HEMATOCRIT 36.8 % (42.0-52.0); HGB - HEMOGLOBIN 12.5 g/dL (14.0-18.0); MEAN CORPUSCULAR HEMOGLOBIN 32.1 pg (27.0-31.0); MEAN CORPUSCULAR VOLUME 94.6 fL (80.0-94.0); MEAN PLATELET VOLUME 8.8 fL (7.4-11.4); MONOCYTES # (AUTO) 0.9 10^3/uL (0.0-1.0); MONOCYTES % (AUTO) 9.7 %; NEUTROPHILS # (AUTO) 7.4 10^3/uL (1.5-6.6); NEUTROPHILS % (AUTO) 78.1 %; PLT - PLATELET COUNT 196 10^3/uL (130-450); RED BLOOD COUNT 3.89 10^6/uL (4.70-6.10); RED CELL DISTRIBUTION WIDTH 14.3 % (12.0-15.0); WHITE BLOOD COUNT 9.4 x10^3/uL (4.8-10.8)
[2021-04-01 10:44] LABS: ALBUMIN 3.9 g/dL (3.2-5.5); ALBUMIN/GLOBULIN RATIO 1.7 (1.0-2.2); BILIRUBIN,TOTAL 0.7 mg/dL (0.2-1.0); CALCIUM 9.2 mg/dL (8.5-10.3); CREATININE 0.8 mg/dL (0.6-1.2); POTASSIUM 4.9 mmol/L (3.5-5.0); TOTAL PROTEIN 6.2 g/dL (6.7-8.2)
--- NOTE | 2021-04-01 11:03 | CT Report ---
PROCEDURE: HEAD WO INDICATIONS: fall with struck head TECHNIQUE: Noncontrast 4.5 mm thick angled axial sections acquired from the foramen magnum to the vertex. For r adiation dose reduction, the following was used: automated exposure control, adjustment of mA and/or kV according to patient size. COMPARISON: 03/30/2021 and 06/06/2020. FINDINGS: Image quality: Excellent. CSF spaces: Basal cisterns are patent. No extra-axial fluid collections. Ventricles are normal in size and shape. Brain: No midline shift. No intracranial masses or hemorrhage. Diffuse cerebral and cerebellar guerrero ical atrophy is again seen. Moderate white matter chronic small vessel ischemic changes also noted. G ray-white matter interface is normal. Skull and face: Large left posterior parieto-occipital scalp hematoma and swelling is again seen. No acute calvarial fracture is seen. Sinuses: Visualized sinuses and mastoids are clear. IMPRESSION: 1. No CT evidence of acute intracranial bleed, midline shift or mass effect. 2. Persistent large left parieto-occipital scalp hematoma and swelling. No acute skull fracture. 3. Diffuse atrophy and moderate white matter chronic small vessel ischemic changes. Reviewed by: Phillip Etienne MD on 04/01/2021 11:02 AM PDT Approved by: Phillip Etienne MD on 04/01/2021 11:02 AM PDT Station ID: [id number]
[2021-04-01 12:33] VITALS: BP 163/62
== END 2021-04-01 12:39 | disposition home or self-care (01) ==
LOC: ED 09:11
DX: R42 Dizziness and giddiness (principal); S00.03XA Contusion of scalp, initial encounter; W18.30XA Fall on same level, unspecified, initial encounter; Y92.009 Unspecified place in unspecified non-institutional (private) residence as the place of occurrence of the external cause; I10 Essential (primary) hypertension; I45.2 Bifascicular block
CPT/HCPCS: 36415; 70450; 80053; 83690; 84484; 85025; 93005; 99284; A9270

== ENCOUNTER 2021-12-02 09:10 | Emergency (ER) | payer MEDICARE, OTHER ==
[2021-12-02 09:25] VITALS: BP 154/46
[2021-12-02] MEDS ORDERED: THIAMINE INJ 100 MG, MAGNESIUM SULFATE 2 GM, MULTIVITAMIN 10 ML, FOLIC ACID INJ 1 MG in... IV ONE ×5 (11:31)
[2021-12-02 11:33] LABS: BASOPHILS % (AUTO) 0.2 %; EOSINOPHILS # (AUTO) 0.1 10^3/uL (0.0-0.7); EOSINOPHILS % (AUTO) 0.6 %; HCT - HEMATOCRIT 37.8 % (42.0-52.0); HGB - HEMOGLOBIN 12.9 g/dL (14.0-18.0); LYMPHOCYTES # (AUTO) 1.7 10^3/uL (1.5-3.5); LYMPHOCYTES % (AUTO) 19.3 %; MEAN CORPUSCULAR HGB CONC 34.1 g/dL (32.0-36.0); MEAN CORPUSCULAR VOLUME 96.7 fL (80.0-94.0); MEAN PLATELET VOLUME 9.1 fL (7.4-11.4); MONOCYTES % (AUTO) 10.9 %; NEUTROPHILS # (AUTO) 6.2 10^3/uL (1.5-6.6); NEUTROPHILS % (AUTO) 68.4 %; PLT - PLATELET COUNT 199 10^3/uL (130-450); RED BLOOD COUNT 3.91 10^6/uL (4.70-6.10); RED CELL DISTRIBUTION WIDTH 14.4 % (12.0-15.0)
[2021-12-02 11:46] LABS: ALBUMIN 3.9 g/dL (3.2-5.5); ALBUMIN/GLOBULIN RATIO 1.6 (1.0-2.2); BILIRUBIN,TOTAL 0.8 mg/dL (0.2-1.0); CALCIUM 8.9 mg/dL (8.5-10.3); CREATININE 0.8 mg/dL (0.6-1.2); POTASSIUM 4.2 mmol/L (3.5-5.0); TOTAL PROTEIN 6.3 g/dL (6.7-8.2)
--- NOTE | 2021-12-02 12:04 | ED Physician Documentation ---
PD HPI GI BLEED - Stated complaint Stated Complaint: RECTAL BLEEDING - Chief complaint Chief Complaint: Abd Pain - History obtained from History obtained from: Patient - History of Present Illness Timing - onset: How many days ago (2) Timing - duration: Days (2) Timing - details: Gradual onset, Still present, Waxing and waning Associated symptoms: BRBPR Contributing factors: Anticoagulated (plavix and asa) Improved by: Laying still Similar symptoms before: Has not had sx before Recently seen: Not recently seen - Additional information Additional information: Previously well 81-year-old Skip Goyal has a history of hypertension and prostate cancer and 2 days ago he had some bright red blood per rectum he felt this was a small amount and watched closely he had several more episodes during the day on Thursday and yesterday. He had significant amount of blood output yesterday evening even dripped on the floor on the way to the bathroom. He denies any lightheadedness or dizziness he denies ongoing blood loss. He denies any pain. Review of Systems Constitutional: denies: Fever Eyes: denies: Decreased vision Ears: denies: Ear pain Nose: denies: Congestion Throat: denies: Sore throat Cardiac: denies: Chest pain / pressure, Palpitations Respiratory: denies: Dyspnea, Cough GI: reports: Bloody / black stool. denies: Abdominal Pain, Nausea, Vomiting, Constipation, Diarrhea : denies: Dysuria, Frequency PD PAST MEDICAL HISTORY - Past Medical History Cardiovascular: Hypertension Respiratory: None Endocrine/Autoimmune: None GI: Colon polyps : None HEENT: Chronic hearing loss Psych: None Musculoskeletal: None Derm: None - Past Surgical History General: Colonoscopy HEENT: Tonsil/Adenoidectomy - Present Medications Home Medications: Ambulatory Orders Medication Instructions Recorded Confirmed atenoloL [Atenolol] 50 mg PO DAILY 11/21/18 12/02/21 Losartan [Cozaar] 50 mg PO BID 03/30/21 12/02/21 Rosuvastatin Calcium [Crestor] 40 mg PO DAILY PM 03/30/21 12/02/21 Aspirin EC [Ecotrin] 81 mg PO DAILY 12/02/21 12/02/21 Clopidogrel [Plavix] 75 mg PO DAILY 12/02/21 12/02/21 Vit A/Vit C/Vit E/Zinc/Copper 2 each PO DAILY 12/02/21 12/02/21 [Preservision Areds Softgel] - Allergies Allergies/Adverse Reactions: Allergies Allergy/AdvReac Type Severity Reaction Status Date / Time No Known Drug Allergies Allergy Verified 12/02/21 09:20 - Social History Does the pt smoke?: No Smoking Status: Never smoker PD ED PE NORMAL - Vitals Vital signs reviewed: Yes (Hypertensive) - General General: Alert and oriented X 3, No acute distress, Well developed/nourished - HEENT HEENT: Atraumatic, PERRL, EOMI - Neck Neck: Supple, no meningeal sign, No bony TTP - Cardiac Cardiac: RRR, No murmur - Respiratory Respiratory: No respiratory distress, Clear bilaterally - Abdomen Abdomen: Normal bowel sounds, Soft, Non tender, Non distended, No organomegaly - Rectal Rectal: Other (There are numerous external hemorrhoidal tags none of which appear inflamed there is a single internal hemorrhoid that appears full but is not firm. 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, No motor deficit, No sensory deficit, Normal speech Eye Opening: Spontaneous Motor: Obeys Commands Verbal: Oriented GCS Score: 15 - Psych Psych: Normal mood, Normal affect Results - Vitals Vitals: Vital Signs - 24 hr 12/02/21 09:22 Temperature 36.3 C L Heart Rate 63 Respiratory 18 Rate Blood Pressure 154/46 H O2 Saturation 100 Oxygen O2 Source Room air - Labs Labs: Laboratory Tests 12/02/21 12/02/21 12/02/21 11:26 11:26 11:26 WBC 9.0 RBC 3.91 L Hgb 12.9 L Hct 37.8 L MCV 96.7 H MCH 33.0 H MCHC 34.1 RDW 14.4 Plt Count 199 MPV 9.1 Neut # (Auto) 6.2 Lymph # (Auto) 1.7 [place] # (Auto) 1.0 Eos # (Auto) 0.1 Baso # (Auto) 0.0 Absolute Nucleated RBC 0.00 Nucleated RBC % 0.0 Sodium 133 L Potassium 4.2 Chloride 98 L Carbon Dioxide 27 Anion Gap 8.0 BUN 20 Creatinine 0.8 Estimated GFR (MDRD) 92 Glucose 83 Calcium 8.9 Total Bilirubin 0.8 AST 20 ALT 23 Alkaline Phosphatase 47 Total Protein 6.3 L Albumin 3.9 Globulin 2.4 Albumin/Globulin Ratio 1.6 Lipase 27 Blood Type A POSITIVE Blood Type Recheck Antibody Screen NEGATIVE 12/02/21 12/02/21 11:45 14:47 WBC RBC Hgb 12.7 L Hct 37.7 L MCV MCH MCHC RDW Plt Count MPV Neut # (Auto) Lymph # (Auto) [place] # (Auto) Eos # (Auto) Baso # (Auto) Absolute Nucleated RBC Nucleated RBC % Sodium Potassium Chloride Carbon Dioxide Anion Gap BUN Creatinine Estimated GFR (MDRD) Glucose Calcium Total Bilirubin AST ALT Alkaline Phosphatase Total Protein Albumin Globulin Albumin/Globulin Ratio Lipase Blood Type Blood Type Recheck A POSITIVE Antibody Screen PD MEDICAL DECISION MAKING - ED course Complexity details: reviewed results, re-evaluated patient, considered differential, d/w patient, d/w family ED course: 81-year-old Graham Muñoz is has developed a rectal bleed he has had repeated trips to the bathroom with blood on the paper and in the commode as well as some clots. His initial H&H are about his usual. He is administered a banana bag intravenously and a repeat H&H is obtained. During his stay here in the emergency department over almost 6 hours he has no significant output of blood per rectum. He did have some blood on the paper after a stool. Symptoms appear controlled, blood loss has not altered the H&H despite administration of a liter of fluid. He is stable for discharge. Departure - Departure Disposition: 01 Home, Self Care Clinical Impression: GI bleeding Qualifiers: GI bleed type/associated pathology: anorectal hemorrhage Qualified Code(s): K62.5 - Hemorrhage of anus and rectum Condition: Stable Instructions: ED Hematochezia Stable Follow-Up: Steve Wayne MD [Primary Care Provider] - George Joy MD [Provider Admit Priv/Credential] - Comments: Graham, today your blood counts are stable and it looks like your bleeding has reduced. If you continue to have bloody bowel movements and develop dizziness or light headedness return to the ED. Otherwise follow up with the surgeon as recommended for further testing as needed. Discharge Date/Time: 12/02/21 15:30
[2021-12-02 14:53] LABS: HCT - HEMATOCRIT 37.7 % (42.0-52.0); HGB - HEMOGLOBIN 12.7 g/dL (14.0-18.0)
== END 2021-12-02 15:30 | disposition home or self-care (01) ==
LOC: ED 09:10
DX: K62.5 Hemorrhage of anus and rectum (principal); K64.4 Residual hemorrhoidal skin tags; I10 Essential (primary) hypertension
CPT/HCPCS: 36415; 80053; 83690; 85014; 85018; 85025; 86850; 86900; 86901; 96365; 96366; 99282; 99284; J3411

== ENCOUNTER 2021-12-04 08:10 | Outpatient (CLI) | payer MEDICARE, OTHER ==
[2021-12-04 09:23] LABS: BASOPHILS % (AUTO) 0.4 %; EOSINOPHILS # (AUTO) 0.1 10^3/uL (0.0-0.7); EOSINOPHILS % (AUTO) 1.3 %; HGB - HEMOGLOBIN 12.1 g/dL (14.0-18.0); LYMPHOCYTES # (AUTO) 1.5 10^3/uL (1.5-3.5); LYMPHOCYTES % (AUTO) 21.3 %; MEAN CORPUSCULAR HEMOGLOBIN 32.7 pg (27.0-31.0); MEAN CORPUSCULAR HGB CONC 34.6 g/dL (32.0-36.0); MEAN CORPUSCULAR VOLUME 94.6 fL (80.0-94.0); MEAN PLATELET VOLUME 9.3 fL (7.4-11.4); MONOCYTES # (AUTO) 0.8 10^3/uL (0.0-1.0); NEUTROPHILS # (AUTO) 4.5 10^3/uL (1.5-6.6); NEUTROPHILS % (AUTO) 64.4 %; PLT - PLATELET COUNT 212 10^3/uL (130-450); RED CELL DISTRIBUTION WIDTH 14.4 % (12.0-15.0)
[2021-12-04 09:40] LABS: THYROID STIMULATING HORMONE 3.48 uIU/mL (0.34-5.60)
[2021-12-04 10:09] LABS: ALBUMIN 3.8 g/dL (3.2-5.5); ALBUMIN/GLOBULIN RATIO 1.8 (1.0-2.2); ALKALINE PHOSPHATASE 39 IU/L (42-121); ALT ALANINE AMINOTRANSFERASE 24 IU/L (10-60); AST ASPARTATE AMINOTRANSFERASE 20 IU/L (10-42); BILIRUBIN,TOTAL 0.7 mg/dL (0.2-1.0); BUN - BLOOD UREA NITROGEN 17 mg/dL (6-20); CALCIUM 8.9 mg/dL (8.5-10.3); CARBON DIOXIDE - CO2 28 mmol/L (21-32); CHLORIDE 99 mmol/L (101-111); CHOL/HDL RATIO 2.6 (<5.0); CHOLESTEROL 100 mg/dL; CREATININE 0.7 mg/dL (0.6-1.2); GFR - MDRD 108 (>89); GLUCOSE 97 mg/dL (70-100); HDL CHOLESTEROL 39 mg/dL; LDL CHOLESTEROL,CALCULATED 48 mg/dL; LDL/HDL RATIO 1.2 (<3.6); POTASSIUM 4.5 mmol/L (3.5-5.0); SODIUM 134 mmol/L (135-145); TOTAL PROTEIN 5.9 g/dL (6.7-8.2); TRIGLYCERIDES 66 mg/dL; VLDL CHOLESTEROL 13 mg/dL
[2021-12-04 11:51] LABS: ESTIMATED AVERAGE GLUCOSE 97 mg/dL (70-100)
== END 2021-12-04 08:11 | disposition home or self-care (01) ==
LOC: LAB 08:10
PROVIDERS: ATTEND Family Medicine
DX: R53.81 Other malaise (principal); M54.59 Other low back pain; G89.29 Other chronic pain; R29.898 Other symptoms and signs involving the musculoskeletal system; S06.9X0S Unspecified intracranial injury without loss of consciousness, sequela; R55 Syncope and collapse; I25.10 Atherosclerotic heart disease of native coronary artery without angina pectoris; R73.9 Hyperglycemia, unspecified; E78.5 Hyperlipidemia, unspecified; I10 Essential (primary) hypertension
CPT/HCPCS: 36415; 80053; 80061; 83036; 83721; 84443; 85025

== ENCOUNTER 2022-09-15 09:59 | Outpatient (CLI) | payer MEDICARE, OTHER ==
[2022-09-15 10:10] LABS: BASOPHILS % (AUTO) 0.3 %; EOSINOPHILS # (AUTO) 0.1 10^3/uL (0.0-0.7); EOSINOPHILS % (AUTO) 0.5 %; HCT - HEMATOCRIT 43.3 % (42.0-52.0); HGB - HEMOGLOBIN 14.4 g/dL (14.0-18.0); LYMPHOCYTES # (AUTO) 1.6 10^3/uL (1.5-3.5); LYMPHOCYTES % (AUTO) 17.1 %; MEAN CORPUSCULAR HEMOGLOBIN 31.6 pg (27.0-31.0); MEAN CORPUSCULAR HGB CONC 33.3 g/dL (32.0-36.0); MEAN PLATELET VOLUME 8.8 fL (7.4-11.4); MONOCYTES # (AUTO) 1.1 10^3/uL (0.0-1.0); MONOCYTES % (AUTO) 11.8 %; NEUTROPHILS # (AUTO) 6.6 10^3/uL (1.5-6.6); NEUTROPHILS % (AUTO) 69.9 %; PLT - PLATELET COUNT 216 10^3/uL (130-450); RED BLOOD COUNT 4.56 10^6/uL (4.70-6.10); WHITE BLOOD COUNT 9.5 x10^3/uL (4.8-10.8)
[2022-09-15 10:26] LABS: BUN - BLOOD UREA NITROGEN 20 mg/dL (6-20); CALCIUM 9.2 mg/dL (8.5-10.3); CARBON DIOXIDE - CO2 28 mmol/L (21-32); CHLORIDE 102 mmol/L (101-111); CHOL/HDL RATIO 2.6 (<5.0); CHOLESTEROL 98 mg/dL; CREATININE 0.8 mg/dL (0.6-1.2); GFR - MDRD 92 (>89); GLUCOSE 92 mg/dL (70-100); HDL CHOLESTEROL 38 mg/dL; LDL CHOLESTEROL,CALCULATED 44 mg/dL; LDL/HDL RATIO 1.2 (<3.6); POTASSIUM 4.4 mmol/L (3.5-5.0); SODIUM 138 mmol/L (135-145); TRIGLYCERIDES 78 mg/dL; VLDL CHOLESTEROL 16 mg/dL
== END 2022-09-15 10:00 | disposition home or self-care (01) ==
LOC: LAB 09:59
PROVIDERS: ATTEND Internal Medicine Cardiovascular Disease
DX: I25.118 Atherosclerotic heart disease of native coronary artery with other forms of angina pectoris (principal); I10 Essential (primary) hypertension
CPT/HCPCS: 36415; 80048; 80061; 83721; 85025

== ENCOUNTER 2022-10-02 14:49 | Outpatient (CLI) | payer MEDICARE, OTHER ==
--- NOTE | 2022-10-02 16:40 | Ultrasound Report ---
PROCEDURE: Carotid Doppler Complete INDICATIONS: CAD, STENOSIS OF LEFT CAROTID ARTERY TECHNIQUE: Color and pulse Doppler interrogation was performed of both carotid systems, with image documentation and velocity measurements. COMPARISON: 06/06/2022 FINDINGS: Right side: Brachial blood pressure: 187/53 mm Hg. Common carotid artery peak systolic velocity: 71 cm/sec. Internal carotid artery peak systolic velocity: 120 cm/sec. Internal carotid artery end diastolic velocity: 15 cm/sec. External carotid artery peak systolic velocity: 639 cm/sec. ICA/CCA peak systolic ratio: 1.8 . Arguello scale imaging description: Extensive plaque throughout Percent internal carotid artery stenosis: 50-69% . Previously less than 50%. Vertebral artery: Flow direction is antegrade. Left side: Brachial blood pressure: 192/51 mm Hg. Common carotid artery peak systolic velocity: 78 cm/sec. Internal carotid artery peak systolic velocity: 112 cm/sec. Internal carotid artery end diastolic velocity: 19 cm/sec. External carotid artery peak systolic velocity: 365 cm/sec. ICA/CCA peak systolic ratio: 1.44 . Arguello scale imaging description: Extensive atherosclerotic plaque throughout Percent internal carotid artery stenosis: Less than 50% . Vertebral artery: Flow direction is antegrade. IMPRESSION: 1. In the right internal carotid artery, there is 50-69 percent stenosis based on peak systolic veloc ity criteria. 2. In the left internal carotid artery, there is less than 50 percent stenosis based on peak systolic velocity criteria. 3. Antegrade blood flow within the right vertebral artery. 4. Antegrade blood flow within the left vertebral artery. 5. Significantly elevated velocities in the external carotid arteries. The estimate of stenosis included in the report of the imaging study was calculated using the [facility]-end orsed standards of carotid artery stenosis. Reviewed by: Desmond Espinal on 10/02/2022 4:39 PM PDT Approved by: Desmond Espinal on 10/02/2022 4:39 PM PDT Station ID: [id number]
== END 2022-10-02 14:50 | disposition home or self-care (01) ==
LOC: DI 14:49
PROVIDERS: ATTEND Internal Medicine Cardiovascular Disease
DX: I25.118 Atherosclerotic heart disease of native coronary artery with other forms of angina pectoris (principal); I65.23 Occlusion and stenosis of bilateral carotid arteries; I10 Essential (primary) hypertension
CPT/HCPCS: 93880

== ENCOUNTER 2023-06-04 09:00 | Outpatient (CLI) | payer MEDICARE, OTHER ==
[2023-06-04 09:21] LABS: BASOPHILS % (AUTO) 0.4 %; EOSINOPHILS # (AUTO) 0.1 10^3/uL (0.0-0.7); EOSINOPHILS % (AUTO) 0.7 %; HCT - HEMATOCRIT 40.3 % (42.0-52.0); HGB - HEMOGLOBIN 13.8 g/dL (14.0-18.0); LYMPHOCYTES # (AUTO) 1.7 10^3/uL (1.5-3.5); LYMPHOCYTES % (AUTO) 23.2 %; MEAN CORPUSCULAR HGB CONC 34.2 g/dL (32.0-36.0); MEAN CORPUSCULAR VOLUME 93.5 fL (80.0-94.0); MEAN PLATELET VOLUME 8.8 fL (7.4-11.4); MONOCYTES # (AUTO) 0.9 10^3/uL (0.0-1.0); MONOCYTES % (AUTO) 12.1 %; NEUTROPHILS # (AUTO) 4.6 10^3/uL (1.5-6.6); NEUTROPHILS % (AUTO) 63.2 %; PLT - PLATELET COUNT 208 10^3/uL (130-450); RED BLOOD COUNT 4.31 10^6/uL (4.70-6.10); RED CELL DISTRIBUTION WIDTH 14.1 % (12.0-15.0); WHITE BLOOD COUNT 7.2 x10^3/uL (4.8-10.8)
[2023-06-04 09:33] LABS: ALBUMIN 3.8 g/dL (3.2-5.5); ALBUMIN/GLOBULIN RATIO 2.1 (1.0-2.2); ALKALINE PHOSPHATASE 52 IU/L (42-121); ALT ALANINE AMINOTRANSFERASE 23 IU/L (10-60); AST ASPARTATE AMINOTRANSFERASE 17 IU/L (10-42); BILIRUBIN,TOTAL 0.5 mg/dL (0.2-1.0); BUN - BLOOD UREA NITROGEN 21 mg/dL (6-20); CALCIUM 9.3 mg/dL (8.5-10.3); CARBON DIOXIDE - CO2 31 mmol/L (21-32); CHLORIDE 102 mmol/L (101-111); CHOLESTEROL 113 mg/dL; CREATININE 0.9 mg/dL (0.6-1.3); GFR - MDRD 80 (>89); GLUCOSE 81 mg/dL (74-104); HDL CHOLESTEROL 38 mg/dL; LDL CHOLESTEROL,CALCULATED 51 mg/dL; LDL/HDL RATIO 1.3 (<3.6); POTASSIUM 4.4 mmol/L (3.5-4.5); SODIUM 136 mmol/L (135-145); TOTAL PROTEIN 5.6 g/dL (6.4-8.9); TRIGLYCERIDES 118 mg/dL (48-352); VLDL CHOLESTEROL 24 mg/dL
[2023-06-04 09:48] LABS: THYROID STIMULATING HORMONE 2.59 uIU/mL (0.34-5.60)
[2023-06-04 11:15] LABS: ESTIMATED AVERAGE GLUCOSE 97 mg/dL (70-100)
== END 2023-06-04 09:01 | disposition home or self-care (01) ==
LOC: LAB 09:00
PROVIDERS: ATTEND Family Medicine
DX: I10 Essential (primary) hypertension (principal); G47.33 Obstructive sleep apnea (adult) (pediatric); I65.1 Occlusion and stenosis of basilar artery; I25.10 Atherosclerotic heart disease of native coronary artery without angina pectoris; R41.3 Other amnesia; R73.9 Hyperglycemia, unspecified; E78.5 Hyperlipidemia, unspecified; Z85.46 Personal history of malignant neoplasm of prostate
CPT/HCPCS: 36415; 80053; 80061; 83036; 83721; 84153; 84443; 85025

== ENCOUNTER 2023-08-19 13:38 | Outpatient (CLI) | payer MEDICARE, OTHER ==
--- NOTE | 2023-08-19 14:19 | Sleep Patient Instructions ---
Sleep Center Visit Summary - Patient Visit Information Reason for Visit: Initial consultation - Patient Instructions Additional Instructions: You will continue with CPAP therapy with pressure set at 5-15 cmH2O. A supply prescription will be updated with your DME. We encourage you to continue to try to lose weight. Please follow up with the sleep care office in 1 year. - Clinic Information Contact: [facility] [address] [place] [address] [email or web address] T: [phone]
--- NOTE | 2023-08-19 14:22 | SLEEP CARE CONSULTATION ---
Information from patient questionnaire entered by Tiki Alicea. I have reviewed and concur with the information entered by Tiki Alicea. This document represents the service I personally performed and the decisions made by me, Leah Jefferson ARNP. History of Present Illness Service Date and Time: 08/19/2023 1338 Reason for Visit: New patient, Previously diagnosed sleep apnea, sleep apnea on CPAP therapy Chief Complaint: reports: Other (TRANSFERRING CLINICS) Date of Onset: 5YRS Usual bedtime: 10PM Time it takes to fall asleep: 10MINS Snores at night: No Observed to quit breathing while asleep: Yes Sleeps alone due to snoring: No Number of times waking at night: 4 Reasons for waking at night: reports: Bathroom Toss, Turn, or Twitch while sleeping: No Recalls having dreams: No Usually gets out of bed at: 630AM Feels refreshed in the morning: Yes Morning headache: No Sleepy or fatigued during the day: Yes Ever fallen asleep while driving: No Takes day naps: Yes Dreams during day naps: No Prior sleep studies: Yes Additional HPI information: JOSSE PAL was previously diagnosed to have severe, AHI 55, obstructive sleep apnea-hypopnea syndrome as seen in HST dated 10/08/2021 done through [facility] and comes in today to establish care for CPAP therapy. - Parasomnia Symptoms Ever been unable to move upon waking from sleep: No Walks in sleep: No Talks in sleep: No Ever acted out dreams in sleep: No Ever felt weak in the knees when startled or emotional: No Bothered by creepy, crawly, restless sensations in legs: No Problems with memory or concentration: Yes CPAP Compliance Data - Data Reviewed with Patient Average duration of nightly device use: 5 hours 32 minutes Compliance rate %: 52 (05/21/23-11/16/23; 53/90 days used; 77% in last 30 days) Current pressure setting (cmH2O): 5-15 (median 6.6, avg 8.3, max 9.1) Average residual AHI: 3.4 Central apnea: 1.9 Obstructive apnea: 0.4 Average large leak: 19 L/min Compliance data discussion: He has ResMed Airsense 11 that was set up on 11/13/2021. He gets his supplies from [employer]. He has a nasal pillows mask, AirFit P10. Subjective Missed days of use due to: reports: other (forgetting to put on) Patient concerns: denies: aerophagia, mask discomfort, air blowing in eyes, mask leak noise, condensation in mask/hose, nasal congestion, dry mouth, nose, throat, epistaxis Observed to snore while using device: No Current pressure setting perceived as: comfortable On therapy, patient: reports: sleeping better, awakening more refreshed, being more awake and alert during the day, more rested overall. denies: drowsiness while driving Initial [place] Sleepiness Scale score: 7 (08/15/23) Past Medical History Past Medical History: reports: Hypertension, Arthritis, Other (knee and hip replacements) Social History The patient's occupation is a RE. Patient is and lives in [place]. Have you smoked in the past 12 months: No Alcohol use: Yes Alcohol amount and frequency: 1 BEER DAILY Caffeine use: Yes Caffeine amount and frequency: 3 DAILY Family History Family history of sleep disordered breathing: No Allergies and Home Medications Known drug allergies: No Drug allergies reviewed: Yes Home medication list reviewed: Yes (as listed) Allergy and home medication list: Allergies No Known Drug Allergies Allergy (Verified 08/17/23 11:29) Home Medications Medication Instructions Recorded Confirmed Last Taken Type atenoloL [Atenolol] 50 mg PO DAILY 11/21/18 12/02/21 04/07/19 08:00 History Losartan [Cozaar] 50 mg PO BID 03/30/21 12/02/21 Unknown History Rosuvastatin Calcium [Crestor] 40 mg PO DAILY PM 03/30/21 12/02/21 Unknown History Aspirin EC [Ecotrin] 81 mg PO DAILY 12/02/21 12/02/21 Unknown History Clopidogrel [Plavix] 75 mg PO DAILY 12/02/21 12/02/21 Unknown History Vit A/Vit C/Vit E/Zinc/Copper 2 each PO DAILY 12/02/21 12/02/21 Unknown History [Preservision Areds Softgel] Review of Systems Cardiovascular: reports: high blood pressure Gastrointestinal: denies: heartburn Urinary: reports: frequency, urgency Psychiatric: denies: anxiety, depression Ear/Nose/Throat: reports: tonsillectomy Musculoskeletal: reports: other (KNEE AND HIP REPLACEMENTS) Physical Exam Vital signs obtained and entered by: TIKI Richmond MA Blood Pressure: 117/68 (LEFT ARM) Cuff size: regular Heart Rate: 65 O2 Saturation: 97 Height: 6 ft 2 in Weight: 210 lb 3.2 oz Body Mass Index: 26.9 BMI Classification: Overweight Neck circumference: 16 Heart: regular rate and rhythm Lungs: clear bilaterally Impression and Plan 1. Obstructive Sleep Apnea-Hypopnea Syndrome, severe, with good treatment compliance and good apnea control. On CPAP therapy, the patient has better sleep quality and is more rested overall. His compliance is minimally reduced but in the last 30 days he has compliant with his CPAP use. He states he sometimes forgets to put the mask on but overall is okay with using his CPAP. Patient has significant improvement of their sleep apnea and is satisfied with current CPAP therapy. Patient denies problems with oral dryness, nasal congestion, epistaxis, skin irritation or aerophagia. Patient's apnea severity and rationale for treatment to reduce apnea, improve sleep quality and reduce cardiovascular and cerebrovascular events was reviewed. I also reviewed the benefit of consistent device use of CPAP for hypertension. 2. Overweight, unspecified. Currently patients BMI is 26.9. Obesity increases the risk of apnea, CPAP pressure requirements and overall health risks especially cardiovascular and diabetes. Thus patient is advised to lose weight. * Continue auto CPAP pressure at 5-15 cmH2O * Update supply prescription * Notify me if snoring with mask or feeling that the pressure is too much or too little * Attempt to lose weight * Call this office if any problems using CPAP * Return for follow up in 12 months, or sooner if concerns arise Counseling Topics: Weight loss health impact Prescriptions: Device supplies Follow up with Sleep Care in: 1 year Visit Type: In Office Time Spent with Patient (minutes): 23 Provider Statement: I spent 100% of the Face to Face Visit with the patient with greater than 50% spent counseling the patient and coordination of care.
[2023-08-19 14:31] VITALS: BP 117/68; O2SAT 97
== END 2023-08-19 13:39 | disposition home or self-care (01) ==
LOC: SC 13:38
PROVIDERS: ATTEND Nurse Practitioner Family
DX: G47.33 Obstructive sleep apnea (adult) (pediatric) (principal); E66.3 Overweight; Z68.26 Body mass index [BMI] 26.0-26.9, adult
CPT/HCPCS: 99202; G0463; 99212

== ENCOUNTER 2023-09-14 11:02 | Emergency (ER) | payer MEDICARE, OTHER ==
--- NOTE | 2023-09-14 12:41 | Ultrasound Report ---
PROCEDURE: Duplex Ext Veins Right INDICATIONS: RLE pain/swelling TECHNIQUE: Real-time imaging, as well as color and pulse Doppler interrogation, were performed of the lower extr emity deep veins from the inguinal ligament to the popliteal fossa. Attempted visualization of the ca lf veins was performed. COMPARISON: None. FINDINGS: The deep veins are normally compressible, and free of intraluminal thrombus. Color and pu lse Doppler demonstrate normal phasic intraluminal flow. There is normal augmentation response to di stal compression maneuver. The lower leg veins are not well-seen due to edema. IMPRESSION: No deep venous thrombosis of the visualized lower extremity. Reviewed by: Mark Fischer MD on 09/14/2023 12:40 PM PDT Approved by: Mark Fischer MD on 09/14/2023 12:40 PM PDT Station ID: [id number]
--- NOTE | 2023-09-14 12:43 | ED Physician Documentation ---
PD HPI LOWER EXT INJURY - Stated complaint Stated Complaint: RT LEG PX,SWELLING,REDNESS - Chief complaint Chief Complaint: Ext Problem - Additional information Additional information: 83-year-old male presents emergency department for right lower extremity pain and swelling with no bruising. Patient said that he does not remember the event his is at bedside she reports that patient has poor memory she says all she knows is that she went outside to check on her and the neighbor was helping him get up Since then he has been having new swelling to the right lower extremity with bruising. He originally went to urgent care for further evaluation and they sent him to the emergency department for further evaluation of possible DVT. Patient is not on any blood thinners he did not hit his head no loss of consciousness. PD PAST MEDICAL HISTORY - Past Medical History Past Medical History: Yes Cardiovascular: Hypertension Respiratory: None Endocrine/Autoimmune: None GI: Colon polyps : None HEENT: Chronic hearing loss Psych: None Musculoskeletal: None Derm: None - Past Surgical History Past Surgical History: Yes General: Colonoscopy HEENT: Tonsil/Adenoidectomy - Present Medications Home Medications: Ambulatory Orders Medication Instructions Recorded Confirmed atenoloL [Atenolol] 50 mg PO DAILY 11/21/18 12/02/21 Losartan [Cozaar] 50 mg PO BID 03/30/21 12/02/21 Rosuvastatin Calcium [Crestor] 40 mg PO DAILY PM 03/30/21 12/02/21 Aspirin EC [Ecotrin] 81 mg PO DAILY 12/02/21 12/02/21 Clopidogrel [Plavix] 75 mg PO DAILY 12/02/21 12/02/21 Vit A/Vit C/Vit E/Zinc/Copper 2 each PO DAILY 12/02/21 12/02/21 [Preservision Areds Softgel] - Allergies Allergies/Adverse Reactions: Allergies Allergy/AdvReac Type Severity Reaction Status Date / Time No Known Drug Allergies Allergy Verified 09/14/23 11:18 - Social History Does the pt smoke?: No Smoking Status: Never smoker Does the pt drink ETOH?: No Does the pt have substance abuse?: No - Immunizations Immunizations are current?: Yes - POLST Patient has POLST: No PD ED PE NORMAL - Vitals Vital signs reviewed: Yes - General General: Alert and oriented X 3, No acute distress, Well developed/nourished - HEENT HEENT: Atraumatic, PERRL - Respiratory Respiratory: No respiratory distress, Clear bilaterally - Extremities Extremities: Other - Free text exam Free text exam: Right lower extremity: Ecchymosis circumferentially around patient's right lower extremity below the knee. There is mild erythema with ecchymosis. Right lower extremity does appear to be more swollen than left lower extremity. There is calf tenderness with palpation he has full range of motion to the right knee and right ankle without any difficulty he is able to ambulate without any difficulty no weakness. Results - Vitals Vitals: Vital Signs - 24 hr 09/14/23 09/14/23 11:15 12:49 Temperature 36.4 C L 36.5 C Heart Rate 58 L 61 Respiratory 20 19 Rate Blood Pressure 137/57 H 135/61 H O2 Saturation 100 99 Oxygen O2 Source Room air - Rads (name of study) Venous duplex of right lower extremity Relevant Findings:: Final report received, EMP independent interpretation of test, Other (No DVT) PD Medical Decision Making - ED course ED course: 83-year-old male presents emergency department for evaluation of right lower extremity swelling for possible DVT. Patient was sent here from urgent care. Venous duplex was complete and there was no blood clot that was visualized. This is most likely due to a muscle tear to the right lower extremity in the calf region he was offered Tylenol ibuprofen but declined currently at this time. They were told to follow-up with primary care provider as needed and to apply ice for 20 minutes with 1 hour off and to apply APOLINAR hose to the right lower extremity to help with the swelling and pain. They are given ER return precautions all questions answered safe for discharge. Departure - Departure Disposition: 01 Home, Self Care Clinical Impression: Torn muscle Instructions: ED Leg Swelling Unilateral Comments: Thank you for trusting us with your care, we have evaluated you for right lower extremity swelling and bruising. We have completed the venous duplex and there was no blood clot visualized. Please as we discussed keep your right lower extremity elevated frequently above your heart as you are able to throughout the day to help with any sort of inflammation and swelling as well as apply a compression stocking to the right lower extremity. You can alternate between 650 mg of Tylenol every 6 hours and 600 mg of ibuprofen every 6 hours but do not use this longer than a couple days to protect your kidney function. Please help with your primary care provider as needed believe that the swelling and bruising you are experiencing is most likely due to a small muscle tear this will take up to 6 weeks to heal. Please come back to the emergency department if you are having any worsening calf pain on that right lower extremity, new weakness, worsening bruising despite all the interventions we had mentioned above. Forms: PCP List Discharge Date/Time: 09/14/23 12:49
[2023-09-14 12:55] VITALS: BP 135/61; O2SAT 99
== END 2023-09-14 12:49 | disposition home or self-care (01) ==
LOC: ED 11:02
DX: S86.911A Strain of unspecified muscle(s) and tendon(s) at lower leg level, right leg, initial encounter (principal); W19.XXXA Unspecified fall, initial encounter; I10 Essential (primary) hypertension; Z79.899 Other long term (current) drug therapy; Z79.02 Long term (current) use of antithrombotics/antiplatelets; Z79.82 Long term (current) use of aspirin
CPT/HCPCS: 99283; 99284

== ENCOUNTER 2023-12-02 08:08 | Outpatient (CLI) | payer MEDICARE, OTHER ==
[2023-12-02 08:22] LABS: BASOPHILS % (AUTO) 0.4 %; EOSINOPHILS # (AUTO) 0.1 10^3/uL (0.0-0.7); EOSINOPHILS % (AUTO) 0.6 %; HCT - HEMATOCRIT 42.1 % (42.0-52.0); HGB - HEMOGLOBIN 14.3 g/dL (14.0-18.0); LYMPHOCYTES # (AUTO) 1.6 10^3/uL (1.5-3.5); LYMPHOCYTES % (AUTO) 21.2 %; MEAN CORPUSCULAR HEMOGLOBIN 31.6 pg (27.0-31.0); MEAN CORPUSCULAR VOLUME 93.1 fL (80.0-94.0); MEAN PLATELET VOLUME 8.9 fL (7.4-11.4); MONOCYTES # (AUTO) 0.9 10^3/uL (0.0-1.0); MONOCYTES % (AUTO) 11.3 %; NEUTROPHILS # (AUTO) 5.1 10^3/uL (1.5-6.6); NEUTROPHILS % (AUTO) 66.2 %; PLT - PLATELET COUNT 181 10^3/uL (130-450); RED BLOOD COUNT 4.52 10^6/uL (4.70-6.10); RED CELL DISTRIBUTION WIDTH 14.6 % (12.0-15.0); WHITE BLOOD COUNT 7.7 x10^3/uL (4.8-10.8)
[2023-12-02 08:38] LABS: ALBUMIN 4.1 g/dL (3.2-5.5); ALBUMIN/GLOBULIN RATIO 1.9 (1.0-2.2); ALKALINE PHOSPHATASE 64 IU/L (42-121); ALT ALANINE AMINOTRANSFERASE 14 IU/L (10-60); AST ASPARTATE AMINOTRANSFERASE 14 IU/L (10-42); BILIRUBIN,TOTAL 0.5 mg/dL (0.2-1.0); BUN - BLOOD UREA NITROGEN 23 mg/dL (6-20); CALCIUM 9.4 mg/dL (8.5-10.3); CARBON DIOXIDE - CO2 30 mmol/L (21-32); CHLORIDE 101 mmol/L (101-111); CHOLESTEROL 112 mg/dL; CREATININE 0.8 mg/dL (0.6-1.3); GFR - MDRD 92 (>89); GLUCOSE 103 mg/dL (74-104); HDL CHOLESTEROL 37 mg/dL; LDL CHOLESTEROL,CALCULATED 50 mg/dL; LDL/HDL RATIO 1.4 (<3.6); POTASSIUM 4.6 mmol/L (3.5-4.5); SODIUM 136 mmol/L (135-145); TOTAL PROTEIN 6.3 g/dL (6.4-8.9); TRIGLYCERIDES 125 mg/dL (48-352); VLDL CHOLESTEROL 25 mg/dL
[2023-12-02 12:00] LABS: ESTIMATED AVERAGE GLUCOSE 94 mg/dL (70-100); HEMOGLOBIN A1c% 4.9 % (4.27-6.07)
== END 2023-12-02 08:09 | disposition home or self-care (01) ==
LOC: LAB 08:08
PROVIDERS: ATTEND Family Medicine
DX: I10 Essential (primary) hypertension (principal); G47.33 Obstructive sleep apnea (adult) (pediatric); I65.09 Occlusion and stenosis of unspecified vertebral artery; R73.9 Hyperglycemia, unspecified; I25.10 Atherosclerotic heart disease of native coronary artery without angina pectoris; D64.9 Anemia, unspecified; E78.5 Hyperlipidemia, unspecified
CPT/HCPCS: 36415; 80053; 80061; 83036; 83721; 84443; 85025

== ENCOUNTER 2024-02-03 08:07 | Outpatient (CLI) | payer MEDICARE, OTHER | END 2024-02-03 23:59 | disposition critical access hospital (66) | LOC: EMS 08:07 | DX: R04.0 Epistaxis (principal); R42 Dizziness and giddiness; S09.93XA Unspecified injury of face, initial encounter; W18.39XA Other fall on same level, initial encounter; Y93.89 Activity, other specified; Y92.009 Unspecified place in unspecified non-institutional (private) residence as the place of occurrence of the external cause | CPT/HCPCS: A0425; A0429 ==

== ENCOUNTER 2024-02-03 08:14 | Emergency (ER) | payer MEDICARE, OTHER ==
[2024-02-03 08:21] VITALS: BP 161/53
--- NOTE | 2024-02-03 08:26 | ED Physician Documentation ---
PD HPI HEAD INJURY - Stated complaint Stated Complaint: GLF - Chief complaint Chief Complaint: Trauma Hd/Nk - History obtained from History obtained from: Patient, EMS (found patient ad his spouse on floor alert and conversant, needing help getting up.) - History of Present Illness Mechanism of head injury: Fell (he held his from behind, as a hug, as she was standing by sink. This caused her to lose balance backwards and they both fell. He struck head on floor and her head struck his nose. Brief epistaxis. No LOC, vomiting, altered mentation. Some dizziness when getting up. 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 Some posterior headache.). No: LOC, AMS PD PAST MEDICAL HISTORY - Past Medical History Past Medical History: Yes Cardiovascular: Hypertension Respiratory: None Endocrine/Autoimmune: None GI: Colon polyps : None HEENT: Chronic hearing loss Psych: None Musculoskeletal: None Derm: None - Past Surgical History Past Surgical History: Yes General: Colonoscopy HEENT: Tonsil/Adenoidectomy - Present Medications Home Medications: Ambulatory Orders Medication Instructions Recorded Confirmed atenoloL [Atenolol] 50 mg PO DAILY 11/21/18 02/03/24 Losartan [Cozaar] 50 mg PO BID 03/30/21 02/03/24 Rosuvastatin Calcium [Crestor] 40 mg PO DAILY PM 03/30/21 02/03/24 Aspirin EC [Ecotrin] 81 mg PO DAILY 12/02/21 02/03/24 Vit A/Vit C/Vit E/Zinc/Copper 2 each PO DAILY 12/02/21 02/03/24 [Preservision Areds Softgel] Memantine [Namenda] 10 mg PO BID 02/03/24 02/03/24 Niacinamide 100 gm MC DAILY 02/03/24 02/03/24 Tamsulosin [Flomax] 0.4 mg PO DAILY 02/03/24 02/03/24 Terbinafine [LamISIL] 250 mg PO DAILY 02/03/24 02/03/24 - Allergies Allergies/Adverse Reactions: Allergies Allergy/AdvReac Type Severity Reaction Status Date / Time No Known Drug Allergies Allergy Verified 02/03/24 08:18 - Social History Does the pt smoke?: No Smoking Status: Never smoker Does the pt drink ETOH?: No Does the pt have substance abuse?: No - Immunizations Immunizations are current?: Yes - POLST Patient has POLST: No PD ED PE NORMAL - Vitals Vital signs reviewed: Yes - General General: Alert and oriented X 3, No acute distress, Well developed/nourished - HEENT HEENT: PERRL, EOMI, Other (dried blood in nostrils, mostly right side. No septal hematoma. No bony tenderness. Back of head tender with abrasion at upper occiput area. 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 No bleeding now. Having feeling of forgetful and mostly some vertigo when sitting up. Can get head CT. Presume mild concussive. ), d/w patient Departure - Departure Disposition: 01 Home, Self Care Clinical Impression: Fall from slip, trip, or stumble, Contusion, nose, Post concussive syndrome Condition: Stable Record reviewed to determine appropriate education?: Yes Instructions: ED Concussion Follow-Up: Steve Wayne MD [Primary Care Provider] - Comments: Your CT scan does not show any signs of bleeding fractures or swelling. It is not too unusual to have some mild dizziness with sitting up or moving around after hitting your head. Commonly this lasts for a couple of days or less, though sometimes can be a week or more. It can be associated with a little confusion or fogginess and some headache. Regarding your nose, I would avoid firm nose blowing for a day or 2 but gentle is okay. You can use some salt water nose spray rinse to help cleanse out any dried blood. Tylenol if needed for pains. Activity as tolerated. Forms: PCP List Discharge Date/Time: 02/03/24 09:39
[2024-02-03] MEDS: ACETAMINOPHEN 500 MG TABLET PO STA (08:32)
[2024-02-03] MEDS: MECLIZINE 12.5 MG TABLET PO STA (08:33)
--- NOTE | 2024-02-03 09:20 | CT Report ---
PROCEDURE: Head WO INDICATIONS: fell backward, struck head. Dizzy. TECHNIQUE: Noncontrast 4.5 mm thick angled axial sections acquired from the foramen magnum to the vertex. For r adiation dose reduction, the following was used: automated exposure control, adjustment of mA and/or kV according to patient size. COMPARISON: 04/01/2021. FINDINGS: Image quality: Excellent. CSF spaces: Basal cisterns are patent. No extra-axial fluid collections. Ventricles are normal in size and shape. Brain: No midline shift. No intracranial masses or hemorrhage. Arguello-white matter interface is norm al. 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 Skull and face: There are bilateral nasal bone fractures, possibly acute. There is fluid present in the right nasal fossa. Calvarium and visualized facial bones are otherwise intact, without suspicious lesions. Sinuses: Fluid in the right nasal fossa. Bilateral sphenoid sinus air-fluid levels, small. IMPRESSION: 1. No acute intracranial pathology. 2. Nasal bone fractures, potentially acute. 3. Mild sinus disease. Reviewed by: Jose Enrique Owen MD on 02/03/2024 9:19 AM PDT Approved by: Jose Enrique Owen MD on 02/03/2024 9:19 AM PDT Station ID: [id number]
[2024-02-03 09:27] VITALS: O2SAT 100
== END 2024-02-03 09:39 | disposition home or self-care (01) ==
LOC: EDUNIT# → ED 08:14
DX: S00.33XA Contusion of nose, initial encounter (principal); F07.81 Postconcussional syndrome; W18.39XA Other fall on same level, initial encounter; I10 Essential (primary) hypertension; Z86.010 Personal history of colon polyps; Z79.899 Other long term (current) drug therapy
CPT/HCPCS: 70450; 99283; 99284; A9270

== ENCOUNTER 2024-08-16 07:48 | Inpatient (IN) ==
--- NOTE | 2024-08-16 07:55 | ED Physician Documentation ---
History of Present Illness Stated complaint Stated Complaint: SYNCOPE/+FLU Chief complaint Chief Complaint: Neuro History obtained from History obtained from: Patient and EMS Additonal information Additional information: 84-year-old gentleman with dementia, coronary disease, carotid stenosis. He was seen on the and found to have influenza A. Again on the after an episode of weakness. Received IV fluids and improved. Had a syncopal episode in the toilet this morning with a skin tear on right elbow. No other reported injuries but history is limited because of dementia. Fatemeh Coma Scale Assess Eye opening: Spontaneous Verbal response: Confused Motor response: Obeys Commands Total score: 14 Meds/Allgy Home Medications Ambulatory Orders Medication Instructions Recorded Confirmed atenolol 50 mg tablet 50 mg PO DAILY 11/21/18 08/13/24 aspirin 81 mg tablet,delayed 81 mg PO DAILY 12/02/21 08/13/24 release vitamins A,C,R-qpqt-[id number] 4,296 2 ea PO DAILY 12/02/21 08/13/24 mcg-226 mg-90 mg capsule (PreserVision AREDS) memantine 5 mg tablet 10 mg PO BID 02/03/24 08/13/24 niacinamide (bulk) 100 % powder 100 g miscellaneous DAILY 02/03/24 08/13/24 amlodipine 5 mg tablet (Norvasc) 5 mg PO BID 04/18/24 08/13/24 losartan 100 mg tablet 100 mg PO QDAY 04/18/24 08/16/24 rosuvastatin 40 mg tablet See Rx Instructions .Route 06/09/24 08/13/24 .COMPLEX #90 tabs doxycycline hyclate 100 mg tablet See Rx Instructions .Route 07/09/24 08/13/24 .COMPLEX #10 tabs oseltamivir 75 mg capsule (Tamiflu) 75 mg PO BID 5 days #10 caps 08/11/24 08/13/24 tamsulosin 0.4 mg capsule See Rx Instructions .Route 08/16/24 .COMPLEX #90 caps Allergies Allergies Allergy/AdvReac Type Severity Reaction Status Date / Time No Known Drug Allergies Allergy Verified 08/16/24 07:56 [facility] Active Problems All Active Problems (Updated 08/16/24 @ 11:02 by Bi Toth MD) Skin tear of right elbow without complication (Acute) Elevated troponin (Acute) Syncope (Acute) Dehydration (Acute) Influenza A (Acute) Cellulitis of left forearm (Acute) Skin tear of left forearm without complication (Acute) Hypertension (Acute 03/22/19) Fall from slip, trip, or stumble (Acute) Visit for suture removal (Acute) Medical History Medical History (Updated 08/16/24 @ 11:02 by Bi Toth MD) Anemia (03/22/19) Back pain (07/25/19) Balance problem (06/13/21) 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) Coronary artery disease (12/12/20) Physical deconditioning (06/13/21) 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) Hard of hearing (03/22/19) Hyperlipidemia (03/22/19) Leg weakness, bilateral (06/13/21) Chronic low back pain (06/13/21) Memory deficit (05/22/20) 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) Nocturia (06/09/22) Obstructive sleep apnea (12/10/21) OM (onychomycosis) (12/08/22) Osteoarthritis (03/22/19) Proximal muscle weakness (10/12/23) Systolic hypertension (05/22/20) Vertebral artery stenosis (12/10/21) Cataract, bilateral (07/10/20) Syncope (04/03/21) Tubular adenoma of colon (03/23/19) Phlebitis (10/12/23) Personal history of malignant neoplasm of prostate (12/08/22) Colonic polyp (03/22/19) Left carotid artery stenosis (06/09/20) Basal cell carcinoma (03/22/19) Social History Social History (Updated 08/11/24 @ 09:12 by Cosme Lopez, RN, BSN) Smoking Status: Never smoker Do you dip or chew tobacco?: No Do you vape?: No Living arrangement: At home Marital Status: Living Condition: With spouse/s.o. Relationship: Level: Independent Do you feel safe in your home environment?: Yes Suffered physical, verbal, emotional, or financial abuse?: No History of Abuse: No ETOH Use: Beer Frequency: Daily Substance Use: denies use Are you sexually active?: Yes POLST Patient has POLST: No Exam Constitutional normal general appearance He knows he is in the hospital, not why nor the date. Eyes PERRL Respiratory breath sounds equal bilaterally, normal respiratory effort and clear to auscultation bilaterally Cardiovascular normal heart rate noted, regular rhythm noted and no murmur Gastrointestinal nontender to palpation and nontender to percussion Extremities Large skin tear over the right olecranon without underlying bony tenderness. Neurology GCS calculation - Eye opening: Spontaneous Verbal response: Confused Motor response: Obeys Commands Fatemeh Coma Scale total score: 14 Results Vitals Vitals: Vital Signs - 24 hr 08/16/24 07:56 08/16/24 08:02 Temperature 36.4 C L Temperature Source Oral Pulse Rate 72 67 Respiratory Rate 19 17 Blood Pressure 199/78 H 231/133 H O2 Saturation 95 95 O2 Source Room air Room air Pain Intensity 6 Oxygen O2 Source Room air EKG (time done) 0801: EKG releavant findings:: EKG personally interpreted by author of this note. Relevant findings are: Normal sinus rhythm with rate of 64. Left atrial enlargement with right bundle and left anterior fascicular block. No ST elevation or depression. Labs Labs: Laboratory Tests 08/16/24 08/16/24 08:06 10:05 WBC 5.4 RBC 4.48 L Hgb 13.6 L Hct 40.6 L MCV 90.6 MCH 30.4 MCHC 33.5 RDW 14.1 Plt Count 153 MPV 9.6 Neut # (Auto) 4.0 Lymph # (Auto) 0.8 L [place] # (Auto) 0.5 Eos # (Auto) 0.0 Baso # (Auto) 0.0 Absolute Nucleated RBC 0.00 Nucleated RBC % 0.0 Sodium 136 Potassium 3.5 Chloride 101 Carbon Dioxide 26 Anion Gap 9.0 BUN 15 Creatinine 0.7 Estimated GFR (MDRD) 107 Glucose 112 H Calcium 8.3 L Total Bilirubin 0.6 AST 66 H ALT 101 H Alkaline Phosphatase 62 Troponin I High Sens 126.0 H* 133.6 H* Total Protein 5.6 L Albumin 3.4 Globulin 2.2 Albumin/Globulin Ratio 1.5 Lipase < 10 L Rads (name of study) CT head and cervical spine and right elbow x-ray were negative for acute traumatic findings: Relevant Findings:: Final report received and EMP independent interpretation of test (NAD) PD Medical Decision Making ED course Complexity details: reviewed results (CBC showing fairly stable normocytic anemia. CMP showing mild elevation in glucose and mild hypocalcium.) ED course: 84-year-old gentleman who has known influenza A had a near syncopal episode the other day and today had a full syncopal episode with a skin tear on the right elbow with negative radiography there. Also had CT head and cervical spine that were negative for acute findings. He did have a positive troponin but relatively unchanged after 2-hour delta. He was quite hypertensive and administered divided doses of hydralazine here. Given the above spoke with Dr. Bell for observation at 11 AM. Of note the says he also has an implanted loop recorder and she got a message from [employer] recently stating that he had an episode of A-fib. The patient and family are counseled as to the diagnosis and need for admission. This document was made in part using voice recognition software, while efforts are made to proofread this document, sound alike an grammatical errors may occur. Discharge Plan Discharge Patient Disposition: ED Place in Observation Condition: Fair Clinical Impression: Syncope, Elevated troponin, Skin tear of right elbow without complication Hypertension Qualifiers: Hypertension type: primary hypertension Qualified Code(s): I10 - Essential (primary) hypertension Prescriptions: No Action rosuvastatin 40 mg tablet See Rx Instructions .ROUTE .COMPLEX Qty: 90 3RF Dose Instruction: TAKE ONE (1) TABLET BY MOUTH EVERY DAY Rx Instructions: TAKE ONE (1) TABLET BY MOUTH EVERY DAY doxycycline hyclate 100 mg tablet See Rx Instructions .ROUTE .COMPLEX Qty: 10 0RF Dose Instruction: TAKE 1 TABLET BY MOUTH TWICE A DAY FOR 5 DAYS - TAKE WITH FOOD & STAY WELL HYDRATED Rx Instructions: TAKE 1 TABLET BY MOUTH TWICE A DAY FOR 5 DAYS - TAKE WITH FOOD & STAY WELL HYDRATED tamsulosin 0.4 mg capsule See Rx Instructions .ROUTE .COMPLEX Qty: 90 3RF Dose Instruction: TAKE ONE (1) CAPSULE BY MOUTH EVERY EVENING Rx Instructions: TAKE ONE (1) CAPSULE BY MOUTH EVERY EVENING atenolol 50 MG tablet 50 mg PO DAILY aspirin 81 MG tablet,delayed release (DR/EC) 81 mg PO DAILY PreserVision AREDS 1 EACH capsule 2 ea PO DAILY niacinamide (bulk) 2,500 GM powder 100 g miscellaneous DAILY memantine 5 MG tablet 10 mg PO BID oseltamivir [Tamiflu] 75 mg capsule 75 mg PO BID 5 Days Qty: 10 0RF losartan 100 mg tablet 100 mg PO QDAY amlodipine [Norvasc] 5 mg tablet 5 mg PO BID Print Language: Norwegian Stand Alone Forms: PCP List
[2024-08-16 08:11] LABS: BASOPHILS % (AUTO) 0.2 %; EOSINOPHILS % (AUTO) 0.4 %; HCT - HEMATOCRIT 40.6 % (42.0-52.0); HGB - HEMOGLOBIN 13.6 g/dL (14.0-18.0); LYMPHOCYTES # (AUTO) 0.8 10^3/uL (1.5-3.5); LYMPHOCYTES % (AUTO) 14.9 %; MEAN CORPUSCULAR HEMOGLOBIN 30.4 pg (27.0-31.0); MEAN CORPUSCULAR HGB CONC 33.5 g/dL (32.0-36.0); MEAN CORPUSCULAR VOLUME 90.6 fL (80.0-94.0); MEAN PLATELET VOLUME 9.6 fL (7.4-11.4); MONOCYTES # (AUTO) 0.5 10^3/uL (0.0-1.0); MONOCYTES % (AUTO) 8.8 %; NEUTROPHILS % (AUTO) 74.4 %; PLT - PLATELET COUNT 153 10^3/uL (130-450); RED BLOOD COUNT 4.48 10^6/uL (4.70-6.10); RED CELL DISTRIBUTION WIDTH 14.1 % (12.0-15.0); WHITE BLOOD COUNT 5.4 x10^3/uL (4.8-10.8)
[2024-08-16 08:26] LABS: ALBUMIN 3.4 g/dL (3.2-5.5); ALBUMIN/GLOBULIN RATIO 1.5 (1.0-2.2); ALKALINE PHOSPHATASE 62 IU/L (42-121); ALT ALANINE AMINOTRANSFERASE 101 IU/L (10-60); AST ASPARTATE AMINOTRANSFERASE 66 IU/L (10-42); BILIRUBIN,TOTAL 0.6 mg/dL (0.2-1.0); BUN - BLOOD UREA NITROGEN 15 mg/dL (6-20); CALCIUM 8.3 mg/dL (8.5-10.3); CARBON DIOXIDE - CO2 26 mmol/L (21-32); CHLORIDE 101 mmol/L (101-111); CREATININE 0.7 mg/dL (0.6-1.3); GFR - MDRD 107 (>89); GLUCOSE 112 mg/dL (74-104); LIPASE < 10 U/L (11-82); POTASSIUM 3.5 mmol/L (3.5-4.5); SODIUM 136 mmol/L (135-145); TOTAL PROTEIN 5.6 g/dL (6.4-8.9)
[2024-08-16] MEDS: SODIUM CHLORIDE 0.9% 1,000 ML IV STA (08:38)
--- NOTE | 2024-08-16 08:39 | CT Report ---
PROCEDURE: CT Head WO INDICATIONS: poss head inj TECHNIQUE: Noncontrast 4.5 mm thick angled axial sections acquired from the foramen magnum to the vertex. For r adiation dose reduction, the following was used: automated exposure control, adjustment of mA and/or kV according to patient size. COMPARISON: 02/03/2024 FINDINGS: Image quality: Diagnostic CSF spaces: Basal cisterns are patent. Lateral ventricles are symmetric. Volume: Vascular calcifications. Periventricular white matter disease is commonly seen with chronic m icroangiopathy. Volume loss is present. These findings are moderate . Brain: No intracranial hemorrhage. Arguello-white differentiation is grossly maintained. Craniofacial structures: No significant paranasal sinus opacity. Mild mucosal thickening is seen. Alex s replacements. IMPRESSION: No acute intracranial abnormality. Reviewed by: Mark Fischer MD on 08/16/2024 8:37 AM PST Approved by: Mark Fischer MD on 08/16/2024 8:37 AM PST Station ID: [id number]
--- NOTE | 2024-08-16 08:40 | CT Report ---
PROCEDURE: CT Cervical Spine WO INDICATIONS: poss head inj TECHNIQUE: Noncontrast 3 mm thick sections acquired from the skull base to the T4 level. Sagittal and coronal r eformats were then constructed. For radiation dose reduction, the following was used: automated exp osure control, adjustment of mA and/or kV according to patient size. COMPARISON: None. FINDINGS: Image quality: Diagnostic Bones: There are moderate degenerative changes of the cervical spine with multilevel disc space heigh t loss, osteophytes, and arthropathy. There is no acute vertebral body height loss or traumatic sublu xation. Soft tissues: No apical pneumothorax. No pathologic prevertebral soft tissue swelling. Vascular calci fications. No actionable thyroid nodule identified. IMPRESSION: No acute fracture/traumatic subluxation of the cervical spine. Moderate spondylotic changes. If there is high concern for further derangement, consider MRI evaluation. Reviewed by: Mark Fischer MD on 08/16/2024 8:39 AM PST Approved by: Mark Fischer MD on 08/16/2024 8:39 AM PST Station ID: [id number]
--- NOTE | 2024-08-16 08:42 | XRAY Report ---
PROCEDURE: XR Elbow 3+V RT INDICATIONS: elbow inj TECHNIQUE: 3 views of the elbow were acquired. COMPARISON: None. FINDINGS AND IMPRESSION: No displaced acute fracture. No dislocation. There are mild background degenerative changes. Mild ole cranon enthesopathy. Soft tissue swelling is seen adjacent to the olecranon. No significant joint effusion. There are vasc ular calcifications Reviewed by: Mark Fischer MD on 08/16/2024 8:41 AM PST Approved by: Mark Fischer MD on 08/16/2024 8:41 AM PST Station ID: [id number]
[2024-08-16] MEDS: hydrALAZINE INJ 20 MG/ML VIAL IVP STA ×2 (10:25→11:06)
[2024-08-16] MEDS ORDERED: SODIUM CHLORIDE FLUSH 0.9% 10 ML SYRINGE IVP PRN (11:18)
[2024-08-16] MEDS ORDERED: ACETAMINOPHEN 325 MG TABLET PO PRN (11:22)
[2024-08-16] MEDS ORDERED: ONDANSETRON ODT 4 MG TABLET TL PRN (11:22)
--- NOTE | 2024-08-16 12:03 | HISTORY & PHYSICAL EXAMINATION ---
Chief Complaint Chief Complaint Chief Complaint: Syncopal episode, elevated troponin History of Present Illness Admitted From Admitted From:: Emergency Department History Obtained From History obtained from: Patient's Yolanda Exam Limitations: Patient is very poor historian due to dementia History of Present Illness HPI Comment/Other: Patient is an 84 year old male with a history of dementia, coronary disease, and carotid stenosis. He had a recent bout of influenza A, diagnosed on 08/11/24, and has been feeling weak since then. Patient's stated he fell in the bathroom this morning but does not know why. Patient states he does not remember if he had a syncopal episode of if he simply fell. Patient's stated he has fallen three times in the last week, and this time patient suffered a skin tear on his right elbow. Patient had a CT of his head and cervical spine, which was negative for acute findings. Patient was very hypertensive in the ED, for which he was given hydralazine. He normally takes atenolol for hypertension but did not have his dose today. He also had an elevated troponin which was relatively unchanged on a repeat draw 2 hours later. Patient was sitting upright in his ED bed when I saw him. He did appear to be in any distress and was breathing normally. When I started asking him questions about what brought him in, he told me I'd better ask his . He continued to deflect all questions to his , stating he didn't know the answers. Patient's stated he is normally mildly confused but was a little more confused today. Patient ambulates independently, without any assisting devices, and is "reasonably stable" on his feet. He and his live on their own in their home. Patient is generally independent with his ADLs. Patient and his have two children, a son (Curry) and a daughter (Alka). The son lives in [place] and the daughter has . They have supportive neighbors and friends that they can call on when they need assistance. An EKG done in the ED showed normal sinus rhythm with a rate of 64. There was left atrial enlargement with right bundle and left anterior fasicular blocks. No ST elevation or depression. Patient's said that he has an implantable loop recorder, and she got a text message from [employer] on 08/05/24 stating that the patient had experienced an episode of A-fib. He has not previously been diagnosed with A-fib, this is new onset. His previous cardiac history consists of an RCA stent placed 08/15/20, three left descending artery stents placed 08/31/20, and left carotid artery revascularization done 10/04/20. The loop recorder was placed 04/18/21 and is checked every three months. Patient has not had any abnormal heart events until yesterday. He has a lingering cough, but most of his flu symptoms have resolved. Patient states the cough brings up minimal sputum, which is clear and non-bloody. Patient is normally healthy, his states patient has had bilateral knee replacements and one hip replacement but has no other chronic medical conditions. He had prostate cancer many years ago which was treated with radioactive seeds. He has never smoked or used any substances, and drinks one bottle of beer per day. We did discuss patient's code status as they do not have any advanced care directives. Patient stated he did not want CPR but did want to be intubated if necessary. His is his medical decision maker. They do not yet have a POLST, I will bring one to the patient's room once he is settled on the inpatient side. Meds/Allgy Home Medications Ambulatory Orders Medication Instructions Recorded Confirmed atenolol 50 mg tablet 50 mg PO DAILY 11/21/18 08/16/24 aspirin 81 mg tablet,delayed 81 mg PO DAILY 12/02/21 08/16/24 release vitamins A,C,M-qswk-cavzkn 4,296 2 ea PO DAILY 12/02/21 08/16/24 mcg-226 mg-90 mg capsule (PreserVision AREDS) niacinamide (bulk) 100 % powder 100 g miscellaneous DAILY 02/03/24 08/16/24 losartan 100 mg tablet 100 mg PO QDAY 04/18/24 08/16/24 rosuvastatin 40 mg tablet See Rx Instructions .Route 06/09/24 08/16/24 .COMPLEX #90 tabs memantine 10 mg tablet 10 mg PO BID 08/16/24 08/16/24 tamsulosin 0.4 mg capsule See Rx Instructions .Route 08/16/24 08/16/24 .COMPLEX #90 caps terbinafine HCl 250 mg tablet 250 mg PO DAILY 08/16/24 08/16/24 Allergies Allergies Allergy/AdvReac Type Severity Reaction Status Date / Time No Known Drug Allergies Allergy Verified 08/16/24 07:56 PFSH Active Problems All Active Problems (Updated 08/16/24 @ 14:25 by Angelica Viera) Coronary artery disease (Acute 12/12/20) Hypertension (Acute) Coronary artery disease (CAD) excluded (Acute) Skin tear of right elbow without complication (Acute) Elevated troponin (Acute) Syncope (Acute) Dehydration (Acute) Influenza A (Acute) Cellulitis of left forearm (Acute) Skin tear of left forearm without complication (Acute) Hypertension (Acute 03/22/19) Fall from slip, trip, or stumble (Acute) Visit for suture removal (Acute) Medical History Medical History (Updated 08/16/24 @ 14:25 by Angelica Viera) Anemia (03/22/19) Back pain (07/25/19) Balance problem (06/13/21) 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) Physical deconditioning (06/13/21) 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) Hard of hearing (03/22/19) Hyperlipidemia (03/22/19) Leg weakness, bilateral (06/13/21) Chronic low back pain (06/13/21) Memory deficit (05/22/20) 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) Nocturia (06/09/22) Obstructive sleep apnea (12/10/21) OM (onychomycosis) (12/08/22) Osteoarthritis (03/22/19) Proximal muscle weakness (10/12/23) Systolic hypertension (05/22/20) Vertebral artery stenosis (12/10/21) Cataract, bilateral (07/10/20) Syncope (04/03/21) Tubular adenoma of colon (03/23/19) Phlebitis (10/12/23) Personal history of malignant neoplasm of prostate (12/08/22) Colonic polyp (03/22/19) Left carotid artery stenosis (06/09/20) Basal cell carcinoma (03/22/19) Social History Social History (Updated 08/11/24 @ 09:12 by Cosme Lopez, RN, BSN) Smoking Status: Never smoker Do you dip or chew tobacco?: No Do you vape?: No Living arrangement: At home Marital Status: Living Condition: With spouse/s.o. Relationship: Level: Assisted Do you feel safe in your home environment?: Yes Suffered physical, verbal, emotional, or financial abuse?: No History of Abuse: No ETOH Use: Beer Frequency: Daily Substance Use: denies use Are you sexually active?: Yes POLST Patient has POLST: No Review of Systems Constitutional Reports: Fatigue, Malaise and Weakness; Denies: Chills or Change in sleep pattern Cardiovascular Reports: edema, swelling of feet/ankles (2+ pitting pretibial edema) and lightheadedness; Denies: chest pain, palpitations, shortness of breath with exertion or shortness of breath when lying down Respiratory Reports: Cough, Sputum production (minor amount, clear) and Orthopnea (breathing through mouth at night more than usual); Denies: Shortness of breath, Snoring, Pleuritic pain or SOB at rest Gastrointestinal Reports: Abdominal distention (abdomen felt distended) and other (patient does not remember when last BM was); Denies: Abdominal pain, Nausea or Vomiting Integumentary/Breast Reports: Rash (red macules over face and upper neck) Endocrine Reports: Fatigue Prior Level of Functionality: Independent. Ambulates with a cane or walker Exam Constitutional normal general appearance, no apparent distress, average body habitus and alert HENMT normocephalic Eyes PERRL Neck/C-Spine visual inspection normal and trachea midline Lymph no lymphadenopathy noted Chest inspection of chest normal and palpation of chest normal Respiratory breath sounds equal bilaterally, normal respiratory effort and clear to auscultation bilaterally Cardiovascular normal heart rate noted and regular rhythm noted Gastrointestinal distended (Abd ) Genitourinary bladder normal to palpation Extremities normal to inspection, normal to palpation, no tenderness and no deformity Neurology underwear welter II-XII intact Psychiatry orientation abnormal, cooperative, affect normal and memory abnormal Confused secondary to dementia Skin skin color normal Conclusion/Plan Problem List (1) Syncope: Plan: Patient has been sick with influenza A within this last week and has had several episodes of near syncope with a possible full syncopal episode today. Patient is unsure if he passed out completely, but he fell in the bathroom this morning, against the door, necessitating a call to 911. He also has a history of partial obstruction of his right internal carotid artery, which could be contributory. We would like to order an MRI to check for further soft tissue pathology, including ischemic CVA and other lesions. (2) Coronary artery disease: Plan: Chronic problem. Patient previously had the following procedures: -08/15/20: One Promus Elite drug-eluting stent placed in right coronary artery -08/31/20: Three stents placed in left descending artery -10/04/20: Left carotid artery revascularization with stent placement -04/18/21: Loop recorder implanted Patient received a notification from [employer] yesterday afternoon that his loop recorder had picked up an episode of A-fib, which is a new condition for him. He also had a series of elevated high sensitivity troponin levels in the ED. The level is currently trending down, and we will continue to monitor. Will advise patient to follow-up with his spinning frame changer after discharge. We called patient's spinning frame changer's office (Dr Garcia) and left a message requesting a copy of the patient's most recent echocardiogram results, most recent office note, and any paperwork they may have on the loop recorder and its ability to go through an MRI. We would like to have an MRI done here in the hospital due to patient's syncopal episode and recent near-syncopal episodes. We are waiting for a call back at this time. If the echo is older than May 2024, we may repeat it to check for new structural deficits. We will administer IV fluids and monitor telemetry for heart rate and rhythm (3) Hypertension: Plan: Chronic problem. Patient is normally hypertensive, for which he takes Atenolol 50 mg per day. He does monitor his blood pressure at home and it averages 180/64. He was quite hypertensive in the ED this morning for which he was given hydralazine. Will treat patient's hypertension with IV metoprolol 5mg every 6 hours and losartan 100mg PO once daily while he's hospitalized. (4) Skin tear of right elbow without complication: Plan: This was treated in the ED with steri-strips and a bandage. Will monitor and change dressing as needed Lab Results Lab results reviewed: Yes 08/16/24 08:06 08/16/24 08:06 Core Measures DVT/VTE - Prophylaxis VTE/DVT Device ordered at admit?: Yes
[2024-08-16] MEDS: hydrALAZINE INJ 20 MG/ML VIAL IVP ONE (12:25)
[2024-08-16] MEDS: LOSARTAN 50 MG TABLET PO SCH (13:14)
[2024-08-16] MEDS: METOPROLOL 5 MG/5 ML VIAL IVP SCH (13:14)
[2024-08-16] MEDS: LACTATED RINGERS 1,000 ML IV SCH (13:14)
[2024-08-16] MEDS ORDERED: BENZONATATE 100 MG CAPSULE PO PRN (13:54)
--- NOTE | 2024-08-16 15:53 | PHARMACY PROGRESS NOTE ---
Best Possible Medication History Admit Date and Time: 08/16/24 1119 Home Medications Medication Instructions Recorded Confirmed Type atenolol 50 mg tablet 50 mg PO DAILY 11/21/18 08/16/24 History aspirin 81 mg tablet,delayed 81 mg PO DAILY 12/02/21 08/16/24 History release vitamins A,C,F-ztfb-qcsmth 4,296 2 ea PO DAILY 12/02/21 08/16/24 History mcg-226 mg-90 mg capsule (PreserVision AREDS) niacinamide (bulk) 100 % powder 100 g miscellaneous DAILY 02/03/24 08/16/24 History losartan 100 mg tablet 100 mg PO QDAY 04/18/24 08/16/24 History rosuvastatin 40 mg tablet See Rx Instructions .Route 06/09/24 08/16/24 Rx .COMPLEX #90 tabs memantine 10 mg tablet 10 mg PO BID 08/16/24 08/16/24 History tamsulosin 0.4 mg capsule See Rx Instructions .Route 08/16/24 08/16/24 Rx .COMPLEX #90 caps terbinafine HCl 250 mg tablet 250 mg PO DAILY 08/16/24 08/16/24 History Processed by: Pharmacy Medication History completed: Yes Patient Interview: Completed Secondary Source(s): Written medication list [facility] Statement: Patient is also on naturopathic substances not listed in our system including turmeric, methyl sulfonyl methane, L-cystein, boswelia extract, holdy basil, maricel powder, soy lecithin and piper nigrum per families home med list. As the person ultimately responsible for medication therapy, providers are able to order a medication from an existing home medication list in [facility] via the "Reconcile Routine" prior to Confirmation of that medication by microcomputer support specialist. Such practice is discouraged except when the physician, in their clinical judgment, deems that a medical need exists for a medication without regard to previous use.
[2024-08-16] MEDS: SODIUM CHLORIDE FLUSH 0.9% 10 ML SYRINGE IVP SCH (21:59)
[2024-08-16] MEDS: amLODIPine 5 MG TABLET PO SCH (22:00)
[2024-08-16] MEDS: hydrALAZINE INJ 20 MG/ML VIAL IVP PRN (22:08)
--- NOTE | 2024-08-17 04:57 | PROVIDER PROGRESS NOTE ---
Layout Inspector Note Layout Inspector Note Layout Inspector Note: Telemedicine cross cover: Paged by RN regarding consistently elevated BP since arrival to floor. Chart reviewed, discussed w/ RN. RN to give morning BP medications at this time and continue to monitor response.
[2024-08-17] MEDS: atenoloL 25 MG TABLET PO SCH (05:09)
[2024-08-17] MEDS: LOSARTAN 50 MG TABLET PO SCH (05:10)
[2024-08-17] MEDS: amLODIPine 5 MG TABLET PO SCH (05:10)
[2024-08-17 05:11] LABS: BASOPHILS % (AUTO) 0.4 %; EOSINOPHILS % (AUTO) 0.3 %; HCT - HEMATOCRIT 37.1 % (42.0-52.0); HGB - HEMOGLOBIN 12.8 g/dL (14.0-18.0); LYMPHOCYTES # (AUTO) 1.3 10^3/uL (1.5-3.5); LYMPHOCYTES % (AUTO) 17.6 %; MEAN CORPUSCULAR HEMOGLOBIN 30.7 pg (27.0-31.0); MEAN CORPUSCULAR HGB CONC 34.5 g/dL (32.0-36.0); MEAN PLATELET VOLUME 9.7 fL (7.4-11.4); MONOCYTES # (AUTO) 0.9 10^3/uL (0.0-1.0); MONOCYTES % (AUTO) 11.5 %; NEUTROPHILS # (AUTO) 5.2 10^3/uL (1.5-6.6); NEUTROPHILS % (AUTO) 67.7 %; PLT - PLATELET COUNT 167 10^3/uL (130-450); RED BLOOD COUNT 4.17 10^6/uL (4.70-6.10); RED CELL DISTRIBUTION WIDTH 14.2 % (12.0-15.0); WHITE BLOOD COUNT 7.6 x10^3/uL (4.8-10.8)
[2024-08-17 05:24] LABS: CALCIUM 7.9 mg/dL (8.5-10.3); CREATININE 0.6 mg/dL (0.6-1.3); POTASSIUM 3.4 mmol/L (3.5-4.5)
[2024-08-17] MEDS ORDERED: atenoloL 25 MG TABLET PO SCH ×2 (06:00→09:00)
--- NOTE | 2024-08-17 11:10 | PROVIDER PROGRESS NOTE ---
<Statement entered by Dagoberto Zambrano, MARIANA - 08/17/24 16:34> Patient was seen and examined by me with a separate encounter after being seen by MARIAA student. I reviewed the student's documentation including patient history, physical examination, laboratory, imaging, clinical assessment and treatment plan. I have discussed the management of the patient with the student, and with the patient. There are no changes. Remains not medically cleared due to unavailability of testing. Likely clear in a.m. Subjective Prog Note Date Prog Note Date: 08/17/24 Prog Note Time: 11:05 Subjective Pt reports feeling: No change Subjective: Patient is an 84 year old male with a history of dementia, coronary disease with implanted loop recorder, and carotid stenosis. He was admitted for a syncopal episode following a week of being sick with influenza A. He is a very poor historian due to his dementia and was not able to answer most of my questions this morning. He did state that he slept well and had good appetite. He couldn't remember if he had any episodes of dizziness. He denies pain anywhere and says he feels fine. He has remained hypertensive, but his pressures are similar to his reported daily home BP measurements. His troponin is trending downward and was at 95.9 this morning. He is not experiencing any chest pain or heart palpitations. We have not received any paperwork from his after school program director's office, and have ordered an echocardiogram. He is also scheduled for an MRI today if his loop recorder can go through the procedure. Current Medications Current Medications Current Medications: Current Medications Generic Name Dose Route Start Last Admin Trade Name Freq PRN Reason Stop Dose Admin Acetaminophen 650 mg 08/16/24 11:22 Acetaminophen 325 Mg Tablet PO Q4HR PRN Pain 1 to 4, or Fever Amlodipine Besylate 5 mg 08/17/24 06:00 08/17/24 05:10 Amlodipine 5 Mg Tablet PO 5 mg BID CHRISTEL Administration Atenolol 50 mg 08/17/24 06:00 08/17/24 05:09 Atenolol 25 Mg Tablet PO 50 mg DAILY CHRISTEL Administration Benzonatate 100 mg 08/16/24 13:54 Benzonatate 100 Mg Capsule PO TID PRN Cough Hydralazine HCl 10 mg 08/16/24 16:48 08/17/24 03:30 Hydralazine Inj 20 Mg/Ml Vial IVP 10 mg Q6H PRN Administration Hypertensive Emergency Lactated Ringer's 1,000 mls @ 100 mls/hr 08/16/24 12:00 08/17/24 09:37 Lr IV 100 mls/hr .Q10H CHRISTEL Administration Losartan Potassium 100 mg 08/17/24 06:00 08/17/24 05:10 Losartan 50 Mg Tablet PO 100 mg DAILY CHRISTEL Administration Ondansetron HCl 4 mg 08/16/24 11:22 Ondansetron Odt 4 Mg Tablet TL Q6HR PRN Nausea / Vomiting Sodium Chloride 10 ml 08/16/24 11:18 Sodium Chloride Flush 0.9% 10 Ml Syringe IVP PRN PRN NEEDED PER PROVIDER ORDERS Sodium Chloride 10 ml 08/16/24 17:00 08/17/24 09:26 Sodium Chloride Flush 0.9% 10 Ml Syringe IVP Not Given 0100,0900,1700 [facility] Objective Vital Signs/Intake & Output Reviewed Vital Signs: Yes Vital Signs: Vital Signs x48h Temp Pulse Pulse Resp BP BP BP 08/17/24 07:34 36.9 C 67 16 168/70 H 08/17/24 06:26 68 189/67 H 08/17/24 05:25 36.9 C 88 18 08/17/24 05:00 83 181/68 H 08/17/24 04:26 88 185/80 H 08/17/24 04:25 185/80 H 08/17/24 03:35 86 202/77 H Pulse Ox 08/17/24 07:34 94 08/17/24 06:26 08/17/24 05:25 94 08/17/24 05:00 08/17/24 04:26 08/17/24 04:25 08/17/24 03:35 Intake & Output: Intake & Output 08/14/24 08/15/24 08/16/24 08/17/24 23:59 23:59 23:59 23:59 Intake Total 2840 / 2840 1480 / 1480 Output Total 1050 / 1050 1250 / 1250 Balance 1790 / 1790 230 / 230 Weight (kg) 92 kg Objective General Appearance: positive No acute distress and Alert Eyes Bilateral: positive Normal inspection ENT: positive ENT inspection nml Neck: positive Nml inspection Respiratory: positive Chest non-tender, No respiratory distress and Breath sounds nml Cardiovascular: positive Regular rate & rhythm Abdomen: positive Non-tender Skin: positive Color nml Extremities: positive Non-tender and Pedal edema Neurologic/Psychiatric: positive Motor nml, Sensation nml and Other (Chronic dementia) Lab Results 08/17/24 04:56 08/17/24 04:56 Other Labs: Lab Results x24hrs 08/17/24 08/17/24 08/16/24 Range/Units 08:55 04:56 13:55 WBC 7.6 (4.8-10.8) x10^3/uL RBC 4.17 L (4.70-6.10) 10^6/uL Hgb 12.8 L (14.0-18.0) g/dL Hct 37.1 L (42.0-52.0) % MCV 89.0 (80.0-94.0) fL MCH 30.7 (27.0-31.0) pg MCHC 34.5 (32.0-36.0) g/dL RDW 14.2 (12.0-15.0) % Plt Count 167 (130-450) 10^3/uL MPV 9.7 (7.4-11.4) fL Neut # (Auto) 5.2 (1.5-6.6) 10^3/uL Lymph # (Auto) 1.3 L (1.5-3.5) 10^3/uL Glascock # (Auto) 0.9 (0.0-1.0) 10^3/uL Eos # (Auto) 0.0 (0.0-0.7) 10^3/uL Baso # (Auto) 0.0 (0.0-0.1) 10^3/uL Absolute Nucleated RBC 0.00 x10^3/uL Nucleated RBC % 0.0 /100WBC Sodium 136 (135-145) mmol/L Potassium 3.4 L (3.5-4.5) mmol/L Chloride 104 (101-111) mmol/L Carbon Dioxide 25 (21-32) mmol/L Anion Gap 7.0 (6-13) BUN 14 (6-20) mg/dL Creatinine 0.6 (0.6-1.3) mg/dL Estimated GFR (MDRD) 128 (>89) Glucose 112 H (74-104) mg/dL Calcium 7.9 L (8.5-10.3) mg/dL Troponin I High Sens 95.9 H* 114.3 H* (2.3-19.7) ng/L Assessment/Plan Problem List (1) Syncope: Impression: Patient is unsure if he has had any further episodes of feeling dizzy or lightheaded as he could not remember how he felt overnight. He is scheduled for an MRI today as part of his work-up for syncope. We will see what the results are and if there is nothing concerning, patient will consult with PT/OT for home safety check. (2) Coronary artery disease: Impression: Chronic problem. Patient is scheduled for an echo while he is here to assess his current heart structure and function. He will follow-up with his regular after school program director. (3) Hypertension: Impression: Patient remains hypertensive. We will add hydrochlorothiazide 12.5 PO daily to his regular blood pressure medication regimen of losartan 100 mg PO daily and atenolol 50 mg PO daily. (4) Skin tear of right elbow without complication: Impression: Wound has been treated and is being kept clean and dry. Dressing is being changed as needed.
--- NOTE | 2024-08-17 12:49 | MRI Report ---
PROCEDURE: MRI Brain WO INDICATIONS: syncope. TECHNIQUE: Noncontrast axial T1 spin echo, axial T2 fast spin echo, sagittal and axial FLAIR, coronal T2 fast sp in echo, axial gradient echo, axial diffusion and ADC through the brain. COMPARISON: None CT head from yesterday. FINDINGS: Image quality: Excellent. CSF Spaces: Basal cisterns are patent. No extra-axial fluid collections. Ventricles are normal in size and shape. Brain: No intracranial masses or hemorrhage. Arguello/white matter interface is normal. Brainstem appe ars normal. Diffusion-weighted images demonstrate no acute ischemic insult. 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 Age-related volume loss and mild age-appropriate small vessel ischemic change . Normal intravascular flow voids are present. Skull and face: Calvarium has normal marrow signal. Orbits appear normal. Sinuses: Sinuses and mastoids are clear. IMPRESSION: 1. No acute intracranial abnormality. 2. Mild small vessel ischemic change, old lacunar infarction. Reviewed by: Jose Enrique Owen MD on 08/17/2024 12:47 PM PST Approved by: Jose Enrique Owen MD on 08/17/2024 12:47 PM PST Station ID: [id number]
[2024-08-17] MEDS: hydroCHLOROthiazide 12.5 MG CAPSULE PO SCH (13:35)
--- NOTE | 2024-08-17 15:59 | PT Plan of Care ---
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) Physical deconditioning (06/13/21) 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) Hard of hearing (03/22/19) Hyperlipidemia (03/22/19) Leg weakness, bilateral (06/13/21) Chronic low back pain (06/13/21) Memory deficit (05/22/20) 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) Nocturia (06/09/22) Obstructive sleep apnea (12/10/21) OM (onychomycosis) (12/08/22) Osteoarthritis (03/22/19) Proximal muscle weakness (10/12/23) Systolic hypertension (05/22/20) Vertebral artery stenosis (12/10/21) Cataract, bilateral (07/10/20) Syncope (04/03/21) Tubular adenoma of colon (03/23/19) Phlebitis (10/12/23) Personal history of malignant neoplasm of prostate (12/08/22) Colonic polyp (03/22/19) Left carotid artery stenosis (06/09/20) Basal cell carcinoma (03/22/19) Balance/ Functional Results Sitting Balance Good Standing Balance Fair Tinetti Composite Score ( 19 Balance + Gait) Tinetti Assessment Moderate Fall Risk Interpretation Assessment Assessment Pt is a pleasant 84yo M referred for PT eval d/t syncope with fall at home. Admitted with influenza A and elevated troponins; troponins now down-trending. PMH notable for dementia, CAD , stenosis, new onset Afib as of 08/05/24. Pt lives in [facility] with 2STE with "Yolanda" who is present throughout eval. Pt is normally indep without AD though Yolanda assists with ADLs as she is able. Upon PT eval, pt is hypertensive with BP 181/112, MAP 135, HR 59. Pt denies adverse symptoms and transfers to EOB with minAx1. Seated BP 174/67, MAP significantly improved at 103, HR 64. STS transfer w/ FWW and minAx1. Standing BP 165/57, HR 63 (both pt and report pt is normally hypertensive at home 180s/ 80s on avg). Gait with FWW notable for WBOS, mild retropulsion requiring manual cueing to correct. R toe out with limited BL push off. Pt fatigued after approx 20' ambulation, assisted to transfer back to bed. Transfers with minAx1. He is a moderate fall risk per Tinetti score of 19/28 (cut-off for high fall risk 18/28). Pt will benefit from skilled PT in acute setting to improve activity tolerance and reduce fall risk . When medically clear, PT rec dc to SNF as pt is far below baseline of indep mobility. Goals Improve bed mobility to: Modified Independent Improve supine to sit to: Modified Independent Improve sit to stand to: Contact Guard Improve pivot transfer ability Contact Guard to: Improve sit to supine to: Contact Guard Improve gait ability to: CGA Assistive Device Used: Front Wheeled Walker PT Plan of Care Frequency 1-2x/day Duration Until goals are met Discharge Recommendations Discharge Location Snf Facility DC Equipment Recommended Front wheeled walker Transport Needs at Discharge Wheelchair van
[2024-08-18 05:40] LABS: BASOPHILS % (AUTO) 0.5 %; EOSINOPHILS # (AUTO) 0.1 10^3/uL (0.0-0.7); EOSINOPHILS % (AUTO) 0.7 %; HCT - HEMATOCRIT 37.8 % (42.0-52.0); LYMPHOCYTES # (AUTO) 1.5 10^3/uL (1.5-3.5); LYMPHOCYTES % (AUTO) 17.2 %; MEAN CORPUSCULAR HEMOGLOBIN 30.8 pg (27.0-31.0); MEAN CORPUSCULAR HGB CONC 34.4 g/dL (32.0-36.0); MEAN CORPUSCULAR VOLUME 89.6 fL (80.0-94.0); MEAN PLATELET VOLUME 9.5 fL (7.4-11.4); MONOCYTES # (AUTO) 1.1 10^3/uL (0.0-1.0); MONOCYTES % (AUTO) 13.3 %; NEUTROPHILS # (AUTO) 5.5 10^3/uL (1.5-6.6); NEUTROPHILS % (AUTO) 64.4 %; PLT - PLATELET COUNT 190 10^3/uL (130-450); RED BLOOD COUNT 4.22 10^6/uL (4.70-6.10); RED CELL DISTRIBUTION WIDTH 14.4 % (12.0-15.0); WHITE BLOOD COUNT 8.5 x10^3/uL (4.8-10.8)
[2024-08-18 05:58] LABS: CALCIUM 8.3 mg/dL (8.5-10.3); CREATININE 0.6 mg/dL (0.6-1.3); POTASSIUM 3.6 mmol/L (3.5-4.5)
--- NOTE | 2024-08-18 08:38 | PROVIDER PROGRESS NOTE ---
Subjective Prog Note Date Prog Note Date: 08/18/24 Prog Note Time: 08:31 Subjective Pt reports feeling: No change Subjective: Patient is an 84 year old male with a history of dementia, coronary disease with implanted loop recorder, and carotid stenosis. He was admitted for a syncopal episode following a week of being sick with influenza A. He is a very poor historian due to his dementia and was not able to answer most of my questions this morning. He did state that he slept well and had good appetite. He couldn't remember if he had any episodes of dizziness. He denies pain anywhere and says he feels fine. Patient was started on hydrochlorothiazide yesterday and his blood pressure has decreased to 133/68 as of this morning. He is scheduled for an echocardiogram this morning and will likely be medically clear after that. Current Medications Current Medications Current Medications: Current Medications Generic Name Dose Route Start Last Admin Trade Name Freq PRN Reason Stop Dose Admin Acetaminophen 650 mg 08/16/24 11:22 Acetaminophen 325 Mg Tablet PO Q4HR PRN Pain 1 to 4, or Fever Amlodipine Besylate 5 mg 08/17/24 06:00 08/17/24 20:53 Amlodipine 5 Mg Tablet PO 5 mg BID CHRISTEL Administration Atenolol 50 mg 08/17/24 06:00 08/17/24 05:09 Atenolol 25 Mg Tablet PO 50 mg DAILY CHRISTEL Administration Benzonatate 100 mg 08/16/24 13:54 Benzonatate 100 Mg Capsule PO TID PRN Cough Hydralazine HCl 10 mg 08/16/24 16:48 08/18/24 04:24 Hydralazine Inj 20 Mg/Ml Vial IVP 10 mg Q6H PRN Administration Hypertensive Emergency Hydrochlorothiazide 12.5 mg 08/17/24 13:00 08/17/24 13:35 Hydrochlorothiazide 12.5 Mg Capsule PO 12.5 mg DAILY CHRISTEL Administration Lactated Ringer's 1,000 mls @ 50 mls/hr 08/16/24 12:00 08/18/24 02:12 Lr IV 50 mls/hr .Q20H CHRISTEL Infusion Losartan Potassium 100 mg 08/17/24 06:00 08/17/24 05:10 Losartan 50 Mg Tablet PO 100 mg DAILY CHRISTEL Administration Ondansetron HCl 4 mg 08/16/24 11:22 Ondansetron Odt 4 Mg Tablet TL Q6HR PRN Nausea / Vomiting Sodium Chloride 10 ml 08/16/24 11:18 Sodium Chloride Flush 0.9% 10 Ml Syringe IVP PRN PRN NEEDED PER PROVIDER ORDERS Sodium Chloride 10 ml 08/16/24 17:00 08/18/24 01:32 Sodium Chloride Flush 0.9% 10 Ml Syringe IVP Not Given 0100,0900,1700 [facility] Objective Vital Signs/Intake & Output Vital Signs: Vital Signs x48h Temp Pulse Resp BP BP BP Pulse Ox 08/18/24 07:50 37.0 C 71 133/68 H 08/18/24 05:25 176/72 H 08/18/24 05:25 72 176/62 H 08/18/24 05:10 68 186/58 H 08/18/24 04:55 68 190/56 H 08/18/24 04:40 63 182/56 H 08/18/24 04:35 64 174/56 H 08/18/24 04:30 65 184/58 H 08/18/24 04:24 189/77 H 08/18/24 04:18 36.9 C 69 20 189/77 H 95 08/18/24 01:41 37.2 C 64 20 188/62 H 185/59 H 93 Intake & Output: Intake & Output 08/15/24 08/16/24 08/17/24 08/18/24 23:59 23:59 23:59 23:59 Intake Total 2840 / 2840 3260 / 3260 533 / 533 Output Total 1050 / 1050 2600 / 2600 1275 / 1275 Balance 1790 / 1790 660 / 660 -742 / -742 Weight (kg) 92 kg Lab Results 08/18/24 05:27 08/18/24 05:27 Other Labs: Lab Results x24hrs 08/18/24 08/17/24 Range/Units 05:27 08:55 WBC 8.5 (4.8-10.8) x10^3/uL RBC 4.22 L (4.70-6.10) 10^6/uL Hgb 13.0 L (14.0-18.0) g/dL Hct 37.8 L (42.0-52.0) % MCV 89.6 (80.0-94.0) fL MCH 30.8 (27.0-31.0) pg MCHC 34.4 (32.0-36.0) g/dL RDW 14.4 (12.0-15.0) % Plt Count 190 (130-450) 10^3/uL MPV 9.5 (7.4-11.4) fL Neut # (Auto) 5.5 (1.5-6.6) 10^3/uL Lymph # (Auto) 1.5 (1.5-3.5) 10^3/uL [place] # (Auto) 1.1 H (0.0-1.0) 10^3/uL Eos # (Auto) 0.1 (0.0-0.7) 10^3/uL Baso # (Auto) 0.0 (0.0-0.1) 10^3/uL Absolute Nucleated RBC 0.00 x10^3/uL Nucleated RBC % 0.0 /100WBC Sodium 134 L (135-145) mmol/L Potassium 3.6 (3.5-4.5) mmol/L Chloride 102 (101-111) mmol/L Carbon Dioxide 27 (21-32) mmol/L Anion Gap 5.0 L (6-13) BUN 15 (6-20) mg/dL Creatinine 0.6 (0.6-1.3) mg/dL Estimated GFR (MDRD) 128 (>89) Glucose 101 (74-104) mg/dL Calcium 8.3 L (8.5-10.3) mg/dL Troponin I High Sens 95.9 H* (2.3-19.7) ng/L Assessment/Plan Problem List (1) Syncope: Impression: Likely due to having been sick with influenza A and getting dehydrated. He denies any current episodes of dizziness or pre-syncope but states he wouldn't remember if he had them. He had an MRI yesterday which showed mild small vessel ischemic change and an old lacunar infarction, but was otherwise unremarkable. Patient had a consult with PT/OT yesterday, who recommended he be discharged to a SNF. His Yolanda has asked for that too, as she does not feel comfortable caring for the patient at home. (2) Coronary artery disease: Impression: Chronic problem. Patient is scheduled for an echocardiogram today to assess his current cardiac function following the notification that his loop recorder had picked up an episode of atrial fibrillation. Patient will follow up with his regular radiology technician. (3) Hypertension: Impression: Patient's blood pressure was 133/68 this morning after adding the hydrochlorothiazide. His current medication regimen is losartan 100 mg PO daily, atenolol 50 mg PO daily, and hydrochlorothiazide 12.5 mg PO daily. This appears to be working well at this time. (4) Skin tear of right elbow without complication: Impression: Wound has been treated and is being kept clean and dry. Dressing is being changed as needed.
--- NOTE | 2024-08-18 12:38 | Discharge Summary ---
Discharge Summary Admit Date: 08/16/24 Discharge Date: 08/18/24 Discharging Provider: RYAN Vicente Primary Care Provider: Steve Wayne Code Status: Attempt Resuscitation HOSPITAL COURSE Hospital Course: Syncope: Impression: Likely due to having been sick with influenza A and getting dehydrated. He denies any current episodes of dizziness or pre-syncope but states he wouldn't remember if he had them. He had an MRI yesterday which showed mild small vessel ischemic change and an old lacunar infarction, but was otherwise unremarkable. Patient had a consult with PT/OT yesterday, who recommended he be discharged to a SNF. His Yolanda has asked for that too, as she does not feel comfortable caring for the patient at home. (2) Coronary artery disease: Impression: Chronic problem. Patient is scheduled for an echocardiogram today to assess his current cardiac function following the notification that his loop recorder had picked up an episode of atrial fibrillation. Patient will follow up with his regular parole agent. (3) Hypertension: Impression: Patient's blood pressure was 133/68 this morning after adding the hydrochlorothiazide. His current medication regimen is losartan 100 mg PO daily, atenolol 50 mg PO daily, and hydrochlorothiazide 12.5 mg PO daily. This appears to be working well at this time. (4) Skin tear of right elbow without complication: Impression: Wound has been treated and is being kept clean and dry. Dressing is being changed as needed. ALLERGIES Allergies Allergy/AdvReac Type Severity Reaction Status Date / Time No Known Drug Allergies Allergy Verified 08/16/24 07:56 MEDICATIONS Ambulatory Orders Medication Instructions Recorded Confirmed atenolol 50 mg tablet 50 mg PO DAILY 11/21/18 08/16/24 aspirin 81 mg tablet,delayed 81 mg PO DAILY 12/02/21 08/16/24 release vitamins A,C,A-yamf-iasugy 4,296 2 ea PO DAILY 12/02/21 08/16/24 mcg-226 mg-90 mg capsule (PreserVision AREDS) niacinamide (bulk) 100 % powder 100 g miscellaneous DAILY 02/03/24 08/16/24 losartan 100 mg tablet 100 mg PO QDAY 04/18/24 08/16/24 rosuvastatin 40 mg tablet See Rx Instructions .Route 06/09/24 08/16/24 .COMPLEX #90 tabs memantine 10 mg tablet 10 mg PO BID 08/16/24 08/16/24 tamsulosin 0.4 mg capsule See Rx Instructions .Route 08/16/24 08/16/24 .COMPLEX #90 caps terbinafine HCl 250 mg tablet 250 mg PO DAILY 08/16/24 08/16/24 LABS 08/18/24 05:27 08/18/24 05:27 Discharge Plan Discharge Condition: Fair Prescriptions: No Action rosuvastatin 40 mg tablet See Rx Instructions .ROUTE .COMPLEX Qty: 90 3RF Dose Instruction: TAKE ONE (1) TABLET BY MOUTH EVERY DAY Rx Instructions: TAKE ONE (1) TABLET BY MOUTH EVERY DAY tamsulosin 0.4 mg capsule See Rx Instructions .ROUTE .COMPLEX Qty: 90 3RF Dose Instruction: TAKE ONE (1) CAPSULE BY MOUTH EVERY EVENING Rx Instructions: TAKE ONE (1) CAPSULE BY MOUTH EVERY EVENING atenolol 50 MG tablet 50 mg PO DAILY aspirin 81 MG tablet,delayed release (DR/EC) 81 mg PO DAILY PreserVision AREDS 1 EACH capsule 2 ea PO DAILY niacinamide (bulk) 2,500 GM powder 100 g miscellaneous DAILY memantine 10 mg tablet 10 mg PO BID terbinafine HCl 250 mg tablet 250 mg PO DAILY losartan 100 mg tablet 100 mg PO QDAY Print Language: Nicarag[place] Stand Alone Forms: PCP List
--- NOTE | 2024-08-18 16:00 | PROVIDER PROGRESS NOTE ---
<Statement entered by Dagoberto Zambrano, MARIANA - 08/18/24 18:14> Patient was seen and examined by me with a separate encounter after being seen by MARIAA student. I reviewed the student's documentation including patient history, physical examination, laboratory, imaging, clinical assessment and treatment plan. I have discussed the management of the patient with the student, and with the patient. There are no changes. Subjective Prog Note Date Prog Note Date: 08/18/24 Prog Note Time: 15:56 Subjective Pt reports feeling: No change Subjective: Patient is an 84 year old male with a history of dementia, coronary disease with implanted loop recorder, and carotid stenosis. He was admitted for a syncopal episode following a week of being sick with influenza A. He is a very poor historian due to his dementia and was not able to answer most of my questions this morning. He did state that he slept well and had good appetite. He couldn't remember if he had any episodes of dizziness. He denies pain anywhere and says he feels fine. Current Medications Current Medications Current Medications: Current Medications Generic Name Dose Route Start Last Admin Trade Name Freq PRN Reason Stop Dose Admin Acetaminophen 650 mg 08/16/24 11:22 Acetaminophen 325 Mg Tablet PO Q4HR PRN Pain 1 to 4, or Fever Amlodipine Besylate 5 mg 08/17/24 06:00 08/18/24 08:39 Amlodipine 5 Mg Tablet PO 5 mg BID CHRISTEL Administration Atenolol 50 mg 08/17/24 06:00 08/18/24 08:39 Atenolol 25 Mg Tablet PO 50 mg DAILY CHRISTEL Administration Benzonatate 100 mg 08/16/24 13:54 Benzonatate 100 Mg Capsule PO TID PRN Cough Hydralazine HCl 10 mg 08/16/24 16:48 08/18/24 04:24 Hydralazine Inj 20 Mg/Ml Vial IVP 10 mg Q6H PRN Administration Hypertensive Emergency Hydrochlorothiazide 12.5 mg 08/17/24 13:00 08/18/24 08:38 Hydrochlorothiazide 12.5 Mg Capsule PO 12.5 mg DAILY CHRISTEL Administration Lactated Ringer's 1,000 mls @ 50 mls/hr 08/16/24 12:00 08/18/24 11:38 Lr IV 50 mls/hr .Q20H CHRISTEL Administration Losartan Potassium 100 mg 08/17/24 06:00 08/18/24 08:38 Losartan 50 Mg Tablet PO 100 mg DAILY CHRISTEL Administration Ondansetron HCl 4 mg 08/16/24 11:22 Ondansetron Odt 4 Mg Tablet TL Q6HR PRN Nausea / Vomiting Sodium Chloride 10 ml 08/16/24 11:18 Sodium Chloride Flush 0.9% 10 Ml Syringe IVP PRN PRN NEEDED PER PROVIDER ORDERS Sodium Chloride 10 ml 08/16/24 17:00 08/18/24 08:39 Sodium Chloride Flush 0.9% 10 Ml Syringe IVP Not Given 0100,0900,1700 [facility] Objective Vital Signs/Intake & Output Reviewed Vital Signs: Yes Vital Signs: Vital Signs x48h Temp Pulse BP 08/18/24 07:50 37.0 C 71 133/68 H Intake & Output: Intake & Output 08/15/24 08/16/24 08/17/24 08/18/24 23:59 23:59 23:59 23:59 Intake Total 2840 / 2840 3260 / 3260 1750 / 1750 Output Total 1050 / 1050 2600 / 2600 1925 / 1925 Balance 1790 / 1790 660 / 660 -175 / -175 Weight (kg) 92 kg Objective General Appearance: positive No acute distress and Alert Eyes Bilateral: positive Normal inspection ENT: positive ENT inspection nml Neck: positive Nml inspection Respiratory: positive Chest non-tender, No respiratory distress and Breath sounds nml Cardiovascular: positive Regular rate & rhythm Abdomen: positive Non-tender Skin: positive Color nml Extremities: positive Non-tender Neurologic/Psychiatric: positive Other (Patient has ongoing dementia) Lab Results 08/18/24 05:27 08/18/24 05:27 Other Labs: Lab Results x24hrs 08/18/24 Range/Units 05:27 WBC 8.5 (4.8-10.8) x10^3/uL RBC 4.22 L (4.70-6.10) 10^6/uL Hgb 13.0 L (14.0-18.0) g/dL Hct 37.8 L (42.0-52.0) % MCV 89.6 (80.0-94.0) fL MCH 30.8 (27.0-31.0) pg MCHC 34.4 (32.0-36.0) g/dL RDW 14.4 (12.0-15.0) % Plt Count 190 (130-450) 10^3/uL MPV 9.5 (7.4-11.4) fL Neut # (Auto) 5.5 (1.5-6.6) 10^3/uL Lymph # (Auto) 1.5 (1.5-3.5) 10^3/uL [place] # (Auto) 1.1 H (0.0-1.0) 10^3/uL Eos # (Auto) 0.1 (0.0-0.7) 10^3/uL Baso # (Auto) 0.0 (0.0-0.1) 10^3/uL Absolute Nucleated RBC 0.00 x10^3/uL Nucleated RBC % 0.0 /100WBC Sodium 134 L (135-145) mmol/L Potassium 3.6 (3.5-4.5) mmol/L Chloride 102 (101-111) mmol/L Carbon Dioxide 27 (21-32) mmol/L Anion Gap 5.0 L (6-13) BUN 15 (6-20) mg/dL Creatinine 0.6 (0.6-1.3) mg/dL Estimated GFR (MDRD) 128 (>89) Glucose 101 (74-104) mg/dL Calcium 8.3 L (8.5-10.3) mg/dL Assessment/Plan Problem List (1) Syncope: Impression: Likely due to having been sick with influenza A and getting dehydrated. He denies any current episodes of dizziness or pre-syncope but states he wouldn't remember if he had them. He had an MRI yesterday which showed mild small vessel ischemic change and an old lacunar infarction, but was otherwise unremarkable. Patient had a consult with PT/OT yesterday, who recommended he be discharged to a SNF. His Yolanda has asked for that too, as she does not feel comfortable caring for the patient at home. Patient is medically clear for discharge and is awaiting placement (2) Coronary artery disease: Impression: Chronic problem. We received the report from his last ECG, that was performed 05/2024. That ECG did not show anything remarkable. Patient will follow up with his regular presentation specialist regarding the episode of A fib that was captured on his loop recorder. (3) Hypertension: Impression: Patient's blood pressure was 133/68 this morning after adding the hydrochlorothiazide. His current medication regimen is losartan 100 mg PO daily, atenolol 50 mg PO daily, and hydrochlorothiazide 12.5 mg PO daily. This appears to be working well at this time. (4) Skin tear of right elbow without complication: Impression: Wound has been treated and is being kept clean and dry. Dressing is being changed as needed.
[2024-08-19] MEDS: hydrALAZINE INJ 20 MG/ML VIAL IVP ONE (01:49)
[2024-08-19 05:53] LABS: BASOPHILS # (AUTO) 0.1 10^3/uL (0.0-0.1); BASOPHILS % (AUTO) 0.6 %; EOSINOPHILS # (AUTO) 0.1 10^3/uL (0.0-0.7); EOSINOPHILS % (AUTO) 1.1 %; HCT - HEMATOCRIT 38.3 % (42.0-52.0); HGB - HEMOGLOBIN 13.2 g/dL (14.0-18.0); LYMPHOCYTES # (AUTO) 1.8 10^3/uL (1.5-3.5); LYMPHOCYTES % (AUTO) 18.5 %; MEAN CORPUSCULAR HEMOGLOBIN 30.8 pg (27.0-31.0); MEAN CORPUSCULAR HGB CONC 34.5 g/dL (32.0-36.0); MEAN CORPUSCULAR VOLUME 89.3 fL (80.0-94.0); MEAN PLATELET VOLUME 9.3 fL (7.4-11.4); MONOCYTES # (AUTO) 1.3 10^3/uL (0.0-1.0); MONOCYTES % (AUTO) 13.6 %; NEUTROPHILS # (AUTO) 5.9 10^3/uL (1.5-6.6); NEUTROPHILS % (AUTO) 61.5 %; PLT - PLATELET COUNT 215 10^3/uL (130-450); RED BLOOD COUNT 4.29 10^6/uL (4.70-6.10); RED CELL DISTRIBUTION WIDTH 14.3 % (12.0-15.0); WHITE BLOOD COUNT 9.6 x10^3/uL (4.8-10.8)
[2024-08-19 06:10] LABS: CALCIUM 8.1 mg/dL (8.5-10.3); CREATININE 0.6 mg/dL (0.6-1.3); POTASSIUM 3.6 mmol/L (3.5-4.5)
--- NOTE | 2024-08-19 13:31 | PROVIDER PROGRESS NOTE ---
Subjective Prog Note Date Prog Note Date: 08/19/24 Subjective Pt reports feeling: No change Current Medications Current Medications Current Medications: Current Medications Generic Name Dose Route Start Last Admin Trade Name Faraz PRN Reason Stop Dose Admin Acetaminophen 650 mg 08/16/24 11:22 Acetaminophen 325 Mg Tablet PO Q4HR PRN Pain 1 to 4, or Fever Amlodipine Besylate 5 mg 08/17/24 06:00 08/19/24 08:24 Amlodipine 5 Mg Tablet PO 5 mg BID CHRISTEL Administration Atenolol 50 mg 08/17/24 06:00 08/19/24 08:23 Atenolol 25 Mg Tablet PO 50 mg DAILY CHRISTEL Administration Benzonatate 100 mg 08/16/24 13:54 Benzonatate 100 Mg Capsule PO TID PRN Cough Hydralazine HCl 10 mg 08/16/24 16:48 08/19/24 07:33 Hydralazine Inj 20 Mg/Ml Vial IVP 10 mg Q6H PRN Administration Hypertensive Emergency Hydrochlorothiazide 12.5 mg 08/17/24 13:00 08/19/24 08:23 Hydrochlorothiazide 12.5 Mg Capsule PO 12.5 mg DAILY CHRISTEL Administration Lactated Ringer's 1,000 mls @ 50 mls/hr 08/16/24 12:00 08/19/24 12:13 Lr IV Not Given .Q20H CHRISTEL Losartan Potassium 100 mg 08/17/24 06:00 08/19/24 08:23 Losartan 50 Mg Tablet PO 100 mg DAILY CHRISTEL Administration Ondansetron HCl 4 mg 08/16/24 11:22 Ondansetron Odt 4 Mg Tablet TL Q6HR PRN Nausea / Vomiting Sodium Chloride 10 ml 08/16/24 11:18 Sodium Chloride Flush 0.9% 10 Ml Syringe IVP PRN PRN NEEDED PER PROVIDER ORDERS Sodium Chloride 10 ml 08/16/24 17:00 08/19/24 08:24 Sodium Chloride Flush 0.9% 10 Ml Syringe IVP Not Given 0100,0900,1700 [facility] [place] Objective Vital Signs/Intake & Output Reviewed Vital Signs: Yes Vital Signs: Vital Signs x48h Temp Pulse Resp BP BP Pulse Ox 08/19/24 08:25 182/58 H 08/19/24 07:58 168/58 H 08/19/24 07:33 188/63 H 08/19/24 07:29 36.8 C 64 16 188/63 H 94 Intake & Output: Intake & Output 08/16/24 08/17/24 08/18/24 08/19/24 23:59 23:59 23:59 23:59 Intake Total 2840 / 2840 3260 / 3260 1870 / 1870 800 / 800 Output Total 1050 / 1050 2600 / 2600 2800 / 2800 1300 / 1300 Balance 1790 / 1790 660 / 660 -930 / -930 -500 / -500 Weight (kg) 92 kg Objective General Appearance: positive No acute distress and Alert Eyes Bilateral: positive Normal inspection ENT: positive ENT inspection nml Neck: positive Nml inspection Respiratory: positive Chest non-tender, No respiratory distress and Breath sounds nml Cardiovascular: positive Regular rate & rhythm Abdomen: positive Non-tender Skin: positive Color nml Extremities: positive Non-tender Neurologic/Psychiatric: positive Other (Patient has ongoing dementia) Lab Results 08/19/24 05:36 08/19/24 05:36 Other Labs: Lab Results x24hrs 08/19/24 08/19/24 Range/Units 12:01 05:36 WBC 9.6 (4.8-10.8) x10^3/uL RBC 4.29 L (4.70-6.10) 10^6/uL Hgb 13.2 L (14.0-18.0) g/dL Hct 38.3 L (42.0-52.0) % MCV 89.3 (80.0-94.0) fL MCH 30.8 (27.0-31.0) pg MCHC 34.5 (32.0-36.0) g/dL RDW 14.3 (12.0-15.0) % Plt Count 215 (130-450) 10^3/uL MPV 9.3 (7.4-11.4) fL Neut # (Auto) 5.9 (1.5-6.6) 10^3/uL Lymph # (Auto) 1.8 (1.5-3.5) 10^3/uL [place] # (Auto) 1.3 H (0.0-1.0) 10^3/uL Eos # (Auto) 0.1 (0.0-0.7) 10^3/uL Baso # (Auto) 0.1 (0.0-0.1) 10^3/uL Absolute Nucleated RBC 0.00 x10^3/uL Nucleated RBC % 0.0 /100WBC Sodium 132 L (135-145) mmol/L Potassium 3.6 (3.5-4.5) mmol/L Chloride 100 L (101-111) mmol/L Carbon Dioxide 26 (21-32) mmol/L Anion Gap 6.0 (6-13) BUN 17 (6-20) mg/dL Creatinine 0.6 (0.6-1.3) mg/dL Estimated GFR (MDRD) 128 (>89) Glucose 97 (74-104) mg/dL Calcium 8.1 L (8.5-10.3) mg/dL SARS-CoV-2 (PCR) NOT DETECTED Assessment/Plan Problem List (1) Syncope: Impression: Likely due to having been sick with influenza A and getting dehydrated. He denies any current episodes of dizziness or pre-syncope but states he wouldn't remember if he had them. He had an MRI yesterday which showed mild small vessel ischemic change and an old lacunar infarction, but was otherwise unremarkable. Patient had a consult with PT/OT yesterday, who recommended he be discharged to a SNF. His Yolanda has asked for that too, as she does not feel comfortable caring for the patient at home. Medically cleared 08/18/2024. Awaiting placement (2) Hypertension: Impression: Patient's blood pressure was 133/68 this morning after adding the hydrochlorothiazide. His current medication regimen is losartan 100 mg PO daily, atenolol 50 mg PO daily, and hydrochlorothiazide 12.5 mg PO daily. This appears to be working well at this time. 08/19/2024: BP still elevated. 182/58 today. I have increased his HCTZ to 25 mg p.o. daily (3) Coronary artery disease: Impression: Chronic problem. We received the report from his last ECG, that was performed 05/2024. That ECG did not show anything remarkable. Patient will follow up with his regular utilization management nurse regarding the episode of A fib that was captured on his loop recorder. (4) Skin tear of right elbow without complication: Impression: Wound has been treated and is being kept clean and dry. Dressing is being changed as needed.
[2024-08-19] MEDS: polyethylene glycoL 3350 17 GM PACKET PO SCH (15:39)
--- NOTE | 2024-08-19 16:21 | PT Plan of Care ---
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) Physical deconditioning (06/13/21) 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) Hard of hearing (03/22/19) Hyperlipidemia (03/22/19) Leg weakness, bilateral (06/13/21) Chronic low back pain (06/13/21) Memory deficit (05/22/20) 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) Nocturia (06/09/22) Obstructive sleep apnea (12/10/21) OM (onychomycosis) (12/08/22) Osteoarthritis (03/22/19) Proximal muscle weakness (10/12/23) Systolic hypertension (05/22/20) Vertebral artery stenosis (12/10/21) Cataract, bilateral (07/10/20) Syncope (04/03/21) Tubular adenoma of colon (03/23/19) Phlebitis (10/12/23) Personal history of malignant neoplasm of prostate (12/08/22) Colonic polyp (03/22/19) Left carotid artery stenosis (06/09/20) Basal cell carcinoma (03/22/19) Balance/ Functional Results Sitting Balance Good Standing Balance Fair Tinetti Composite Score ( 19 Balance + Gait) Tinetti Assessment Moderate Fall Risk Interpretation Assessment Assessment Pt is a pleasant 84yo M seen for re-eval today d /t change in status from Obs to IP. Pt admitted with syncopal fall at home and influenza A. PMH notable for dementia, CAD, stenosis, new onset Afib as of 08/05/24. Pt lives in [facility] with [facility] with "Yolanda" who is present throughout re- eval. Pt is normally indep without AD though Yolanda assists with ADLs as she is able. Upon PT re- eval, pt completes STS transfer and short distance ambulation in room w/ FWW and minAx1. Gait with FWW notable for WBOS, mild retropulsion requiring manual cueing to correct. R toe out with limited BL push off. After short seated rest pt able to amb 2nd bout of 20' and practice transferring in/out of bed for modified "car transfer" training prior to anticipated dc tomorrow. He remains a moderate fall risk per Tinetti score of 19/28 (cut-off for high fall risk 18/28). Pt may benefit from continued skilled PT in acute setting to improve activity tolerance and reduce fall risk. When medically clear, PT continues to rec dc to SNF as pt is far below baseline of indep mobility. Goals Improve bed mobility to: Modified Independent Improve supine to sit to: Modified Independent Improve sit to stand to: Modified Independent Improve pivot transfer ability Modified Independent to: Improve sit to supine to: Modified Independent Improve gait ability to: CGA Assistive Device Used: Front Wheeled Walker Reduce verbal cues to: 1 Reduce physical cues to: 1 Improve Sitting Balance to: Good Improve Standing Balance to: Fair PT Plan of Care Frequency 1-2x/day Duration Until goals are met Discharge Recommendations Discharge Location [facility] DC Equipment Recommended Front wheeled walker Transport Needs at Discharge Personal vehicle
[2024-08-19] MEDS ORDERED: ZINC OXIDE 20% OINT 30 GM TUBE TOP PRN (22:12)
[2024-08-20 06:22] LABS: BASOPHILS % (AUTO) 0.4 %; EOSINOPHILS % (AUTO) 1.2 %; HCT - HEMATOCRIT 38.4 % (42.0-52.0); HGB - HEMOGLOBIN 13.4 g/dL (14.0-18.0); LYMPHOCYTES % (AUTO) 16.5 %; MEAN CORPUSCULAR HEMOGLOBIN 31.1 pg (27.0-31.0); MEAN CORPUSCULAR HGB CONC 34.9 g/dL (32.0-36.0); MEAN CORPUSCULAR VOLUME 89.1 fL (80.0-94.0); MEAN PLATELET VOLUME 9.5 fL (7.4-11.4); MONOCYTES % (AUTO) 13.9 %; PLT - PLATELET COUNT 238 10^3/uL (130-450); RED BLOOD COUNT 4.31 10^6/uL (4.70-6.10); RED CELL DISTRIBUTION WIDTH 14.2 % (12.0-15.0); WHITE BLOOD COUNT 11.2 x10^3/uL (4.8-10.8)
[2024-08-20 06:28] LABS: ABNORMAL LYMPHS % (MANUAL) 0 %; BAND NEUTROPHILS % (MANUAL) 0 %
[2024-08-20 06:43] LABS: CALCIUM 8.1 mg/dL (8.5-10.3); CREATININE 0.7 mg/dL (0.6-1.3); POTASSIUM 3.7 mmol/L (3.5-4.5)
[2024-08-20 06:53] LABS: DIFFERENTIAL COMMENT MANUAL DIFFERENTIAL; EOSINOPHILS # (MANUAL) 0.1 10^3/uL (0-0.7); LYMPHOCYTES # (MANUAL) 2.5 10^3/uL (1.5-3.5); LYMPHOCYTES % (MANUAL) 22 %; MONOCYTES # (MANUAL) 1.7 10^3/uL (0.0-1.0); MYELOCYTES % (MANUAL) 3 %; NEUTROPHILS # (MANUAL) 6.6 10^3/uL (1.5-6.6); PLATELET ESTIMATE, MANUAL NORMAL (130-450,000) (NORMAL); PLATELET MORPHOLOGY NORMAL APPEARANCE (NORMAL); RBC MORPHOLOGY (MULTIPLE) NORMAL APPEARANCE (NORMAL); WBC MORPHOLOGY (MULTIPLE) NORMAL APPEARANCE (NORMAL)
[2024-08-20] MEDS ORDERED: hydroCHLOROthiazide 12.5 MG CAPSULE PO SCH (09:00)
[2024-08-20] MEDS: hydroCHLOROthiazide 25 MG TABLET PO SCH (09:35)
--- NOTE | 2024-08-20 10:11 | Discharge Summary ---
Discharge Summary Admit Date: 08/16/24 Discharge Date: 08/20/24 Discharging Provider: Dagoberto Zambrano NP Primary Care Provider: Steve Bales Code Status: Attempt Resuscitation DIAGNOSES Admission Diagnoses: Syncope History of CAD Hypertension Skin tear of right elbow without complication Discharge Diagnoses with Status of Each Condition: Syncoperesolved History of CADchronic Hypertensionchronic Skin tear of the right elbow without complicationdressing in place HPI History of Present Illness: Patient is an 84 year old male with a history of dementia, coronary disease, and carotid stenosis. He had a recent bout of influenza A, diagnosed on 08/11/24, and has been feeling weak since then. Patient's stated he fell in the bathroom this morning but does not know why. Patient states he does not remember if he had a syncopal episode of if he simply fell. Patient's stated he has fallen three times in the last week, and this time patient suffered a skin tear on his right elbow. Patient had a CT of his head and cervical spine, which was negative for acute findings. Patient was very hypertensive in the ED, for which he was given hydralazine. He normally takes atenolol for hypertension but did not have his dose today. He also had an elevated troponin which was relatively unchanged on a repeat draw 2 hours later. Patient was sitting upright in his ED bed when I saw him. He did appear to be in any distress and was breathing normally. When I started asking him questions about what brought him in, he told me I'd better ask his . He continued to deflect all questions to his , stating he didn't know the answers. Patient's stated he is normally mildly confused but was a little more confused today. Patient ambulates independently, without any assisting devices, and is "reasonably stable" on his feet. He and his live on their own in their home. Patient is generally independent with his ADLs. Patient and his have two children, a son (Curry) and a daughter (Alka). The son lives in [place] and the daughter has . They have supportive neighbors and friends that they can call on when they need assistance. An EKG done in the ED showed normal sinus rhythm with a rate of 64. There was left atrial enlargement with right bundle and left anterior fasicular blocks. No ST elevation or depression. Patient's said that he has an implantable loop recorder, and she got a text message from [employer] on 08/05/24 stating that the patient had experienced an episode of A-fib. He has not previously been diagnosed with A-fib, this is new onset. His previous cardiac history consists of an RCA stent placed 08/15/20, three left descending artery stents placed 08/31/20, and left carotid artery revascularization done 10/04/20. The loop recorder was placed 04/18/21 and is checked every three months. Patient has not had any abnormal heart events until yesterday. He has a lingering cough, but most of his flu symptoms have resolved. Patient states the cough brings up minimal sputum, which is clear and non-bloody. Patient is normally healthy, his states patient has had bilateral knee replacements and one hip replacement but has no other chronic medical conditions. He had prostate cancer many years ago which was treated with radioactive seeds. He has never smoked or used any substances, and drinks one bottle of beer per day. HOSPITAL COURSE Hospital Course: Patient was brought into the hospital and given IV fluid resuscitation with improvement in his dizziness. He underwent MRI brain which showed no acute findings. He was evaluated by physical therapy, who recommended DC to SNF. I increased his dose of hydrochlorothiazide to 25 mg p.o. daily. His skin tear of right elbow was dressed. He has been instructed to follow-up with PCP ALLERGIES Allergies Allergy/AdvReac Type Severity Reaction Status Date / Time No Known Drug Allergies Allergy Verified 08/16/24 07:56 MEDICATIONS Ambulatory Orders Medication Instructions Recorded Confirmed atenolol 50 mg tablet 50 mg PO DAILY 11/21/18 08/16/24 aspirin 81 mg tablet,delayed 81 mg PO DAILY 12/02/21 08/16/24 release vitamins A,C,D-rbmi-lapzya 4,296 2 ea PO DAILY 12/02/21 08/16/24 mcg-226 mg-90 mg capsule (PreserVision AREDS) niacinamide (bulk) 100 % powder 100 g miscellaneous DAILY 02/03/24 08/16/24 losartan 100 mg tablet 100 mg PO QDAY 04/18/24 08/16/24 rosuvastatin 40 mg tablet See Rx Instructions .Route 06/09/24 08/16/24 .COMPLEX #90 tabs memantine 10 mg tablet 10 mg PO BID 08/16/24 08/16/24 tamsulosin 0.4 mg capsule See Rx Instructions .Route 08/16/24 08/16/24 .COMPLEX #90 caps terbinafine HCl 250 mg tablet 250 mg PO DAILY 08/16/24 08/16/24 amlodipine 5 mg tablet 5 mg PO BID #60 tabs 08/20/24 hydrochlorothiazide 12.5 mg capsule 25 mg (2 x 12.5 mg) PO DAILY #30 08/20/24 caps PHYSICAL EXAM AT DISCHARGE General Appearance: positive No acute distress and Alert Eyes Bilateral: positive Normal inspection and PERRL ENT: positive ENT inspection nml Neck: positive Nml inspection Respiratory: positive Chest non-tender and No respiratory distress Cardiovascular: positive Regular rate & rhythm Peripheral Pulses: positive 2+ Abdomen: positive Non-tender Skin: positive Color nml Extremities: positive Non-tender Neurologic/Psychiatric: positive Other (Dementia baseline, Follows commands) LABS 08/20/24 05:46 08/20/24 05:46 FOLLOW UP Follow Up: With PCP TIME SPENT Time Spent in Discharge (Minutes): 35 Discharge Plan Discharge Patient Disposition: [facility] DC/Xfer Condition: Fair Prescriptions: New amlodipine 5 mg Tablet 5 mg PO BID Qty: 60 0RF hydrochlorothiazide 12.5 mg Capsule 25 mg PO DAILY Qty: 30 0RF Continued rosuvastatin 40 mg tablet See Rx Instructions .ROUTE .COMPLEX Qty: 90 3RF Dose Instruction: TAKE ONE (1) TABLET BY MOUTH EVERY DAY Rx Instructions: TAKE ONE (1) TABLET BY MOUTH EVERY DAY tamsulosin 0.4 mg capsule See Rx Instructions .ROUTE .COMPLEX Qty: 90 3RF Dose Instruction: TAKE ONE (1) CAPSULE BY MOUTH EVERY EVENING Rx Instructions: TAKE ONE (1) CAPSULE BY MOUTH EVERY EVENING atenolol 50 MG tablet 50 mg PO DAILY aspirin 81 MG tablet,delayed release (DR/EC) 81 mg PO DAILY PreserVision AREDS 1 EACH capsule 2 ea PO DAILY niacinamide (bulk) 2,500 GM powder 100 g miscellaneous DAILY memantine 10 mg tablet 10 mg PO BID terbinafine HCl 250 mg tablet 250 mg PO DAILY losartan 100 mg tablet 100 mg PO QDAY Activity Restrictions: Activity as Tolerated Diet: Regular Health Concerns: You came in after an episode where you got very lightheaded and dizzy and almost passed out. You have been sick with the flu, and this likely contributed to you feeling lightheaded and dizzy. However, we wanted to rule out more serious causes. As such, we got an MRI which showed no new changes. We also reviewed your recently completed echocardiogram, which did not show any changes. I do understand that you have a long cardiac history, and I encourage you to follow-up with your chair car attendant to review your loop recorder readings. We did have you on your cardiac telemetry here and did not note any further episodes of atrial fibrillation. While you were here, your blood pressure was found to be elevated. We increased your hydrochlorothiazide to 25 mg daily. Please follow-up with your primary care physician in 1 to 2 weeks to recheck your blood pressure, recheck your electrolytes and your kidney levels. Physical therapy and Occupational Therapy worked with you, and believe that a assisted facility for some structured rehab would be a good idea for you. Plan is to go to [facility]. We hope you continue to work on your rehabilitation, and continue to get stronger. We are glad you are feeling better, thank you for allowing us to take care of you. Please continue to follow-up with your primary care provider and chair car attendant in the next few weeks. Print Language: Yoruba Patient Instructions: Syncope, Dizziness Fainting Ch Stand Alone Forms: SNF Discharge, PCP List
[2024-08-20 14:58] VITALS: BP 154/53; TEMP 97.7; O2SAT 93
== END 2024-08-20 14:50 | DRG 312 ==
LOC: ED 07:48 → MS3 07:48
PROVIDERS: ADMIT Physician Assistant Medical; ATTEND Physician Assistant Medical
DX: Z79.899 Other long term (current) drug therapy; D64.9 Anemia, unspecified; R79.89 Other specified abnormal findings of blood chemistry; R73.9 Hyperglycemia, unspecified; S51.011A Laceration without foreign body of right elbow, initial encounter; F03.90 Unspecified dementia, unspecified severity, without behavioral disturbance, psychotic disturbance, mood disturbance, and anxiety; Z95.5 Presence of coronary angioplasty implant and graft; E83.51 Hypocalcemia; Z95.818 Presence of other cardiac implants and grafts; I25.10 Atherosclerotic heart disease of native coronary artery without angina pectoris; W19.XXXA Unspecified fall, initial encounter; R55 Syncope and collapse; Y92.002 Bathroom of unspecified non-institutional (private) residence as the place of occurrence of the external cause; Z79.82 Long term (current) use of aspirin; I10 Essential (primary) hypertension; R05.9 Cough, unspecified; I45.2 Bifascicular block